=== PATIENT | female | born 1960 | race Caucasian/White ===

== ENCOUNTER 2022-09-12 18:27 | Emergency (ER) | payer OTHER ==
[2022-09-12 18:34] VITALS: TEMP 98.2
[2022-09-12 19:33] LABS: Basophils % (A) 0 %; Eosinophils # (A) 0.1 k/uL (0-0.7); Eosinophils % (A) 1 %; HCT 41.1 % (34.0-46.0); HGB 13.8 gm/dL (11.4-16.0); Lymphocytes # (A) 2.1 k/uL (1.0-4.8); Lymphocytes % (A) 26 %; MCH 28.8 pg (25.0-35.0); MCHC 33.6 g/dL (31.0-37.0); MCV 85.5 fL (80.0-100.0); Mean Platelet Volume 7.7; Monocytes # (A) 0.6 k/uL (0-1.0); Monocytes % (A) 7 %; Neutrophils % (A) 63 %; Platelet Count 219 k/uL (150-450); RDW 14.2 % (11.5-15.5); WBC 7.9 k/uL (3.8-10.6)
--- NOTE | 2022-09-12 19:37 | XR ---
EXAMINATION TYPE: XR chest 2V DATE OF EXAM: 09/12/2022 7:30 PM COMPARISON: None TECHNIQUE: XR chest 2V Frontal and lateral views of the chest. CLINICAL INDICATION:Female, 61 years old with history of Chest Pain; FINDINGS: Lungs/Pleura: There is no evidence of pleural effusion, focal consolidation, or pneumothorax. Pulmonary vascularity: Unremarkable. Heart/mediastinum: Cardiomediastinal silhouette is unremarkable. Musculoskeletal: No acute osseous pathology. Mild degenerative changes of the thoracic spine. IMPRESSION: No acute cardiopulmonary disease/process.
[2022-09-12 19:51] LABS: ALT 33 U/L (4-34); AST 33 U/L (14-36); African American GFR (CKD) >90 (>60 ml/min/1.73 sqM); Albumin 4.5 g/dL (3.5-5.0); Alkaline Phosphatase 101 U/L (38-126); Anion Gap 10 mmol/L; Blood Urea Nitrogen 18 mg/dL (7-17); Calcium 9.7 mg/dL (8.4-10.2); Carbon Dioxide 25 mmol/L (22-30); Chloride 105 mmol/L (98-107); Glucose 92 mg/dL (74-99); Lipase 154 U/L (23-300); Magnesium 2.2 mg/dL (1.6-2.3); Non-African American GFR(CKD) >90 (>60 ml/min/1.73 sqM); Potassium 3.8 mmol/L (3.5-5.1); Sodium 140 mmol/L (137-145); Total Bilirubin 0.6 mg/dL (0.2-1.3); Total Protein 7.5 g/dL (6.3-8.2)
[2022-09-12 19:55] LABS: Prothrombin Time 10.3 sec (9.0-12.0)
[2022-09-12 19:56] LABS: Partial Thromboplastin Time 23.6 sec (22.0-30.0)
--- NOTE | 2022-09-12 20:42 | ED ---
Chest Pain HPI - General Chief Complaint: Chest Pain Stated Complaint: abn EKG - sent by pcp Time Seen by Provider: 09/12/22 19:00 Source: patient Mode of arrival: ambulatory Limitations: no limitations - History of Present Illness Initial Comments: 61-year-old female percent emergency room from her primary care office. She went into their for evaluation of her high blood pressure. She was reporting to some left-sided chest pain and therefore they did recommend that she come to the hospital. Patient denies previous cardiac history. States that she had a stress test 10 years ago which was normal. Pain is not present at this time. It was sharp in nature located over the left chest wall and only last a couple seconds. She denies fevers, chills or cough. No nausea or vomiting. No history of hypertension. No calf pain. Does admit to some mild peripheral edema. States she's been more active on her feet. The swelling will dissipate when she keeps her feet up at night. No family history of sudden cardiac . No other alleviating, presenting modifying factors - Related Data Home Medications Medication Instructions Recorded Confirmed Multivitamins, Thera [Multivitamin] 1 tab PO DAILY 11/09/15 09/12/22 Cholecalciferol [Vitamin D3 (25 25 mcg PO DAILY 09/12/22 09/12/22 Mcg = 1000 Iu)] L.acidoph,Paracasei, B.lactis 1 cap PO DAILY 09/12/22 09/12/22 [Probiotic] [place]-3/Dha/Epa/Fish Oil [Fish Oil 1 cap PO DAILY 09/12/22 09/12/22 1,000 mg Softgel] Ubidecarenone [Co Q-10] 300 mg PO DAILY 09/12/22 09/12/22 Previous Rx's Medication Instructions Recorded Furosemide [Lasix] 20 mg PO DAILY #30 tab 09/12/22 Allergies Allergy/AdvReac Type Severity Reaction Status Date / Time No Known Allergies Allergy Verified 09/12/22 19:43 Review of Systems ROS Statement: Those systems with pertinent positive or pertinent negative responses have been documented in the HPI. ROS Other: All systems not noted in ROS Statement are negative. Past Medical History Past Medical History: GERD/Reflux Additional Past Medical History / Comment(s): HIATAL HERNIA; IBS, bilateral hearing loss from , sleep apnea, GERD improved since surgery in August 2014 of Hiatal hernia and gastric sleeve History of Any Multi-Drug Resistant Organisms: ESBL, MRSA Date of last positivie culture/infection: 11/05/19 MRSA 2013 MDRO Source:: LT EAR ESBL Past Surgical History: Bariatric Surgery, Orthopedic Surgery, Tubal Ligation Additional Past Surgical History / Comment(s): Bariatric sleeve in August 2014, bilateral knee total replacement (right knee February 2015, Left knee May 2015), left breast biopsy (negative in 2014) Past Anesthesia/Blood Transfusion Reactions: No Reported Reaction Past Psychological History: No Psychological Hx Reported Smoking Status: Former smoker Past Alcohol Use History: None Reported Past Drug Use History: None Reported - Past Family History Mother Family Medical History: Asthma, Cancer, COPD Additional Family Medical History / Comment(s): colon cancer 2015, Father History Unknown: Yes General Exam Limitations: no limitations General appearance: alert, in no apparent distress Head exam: Present: atraumatic, normocephalic, normal inspection Eye exam: Present: normal appearance, PERRL, EOMI. Absent: scleral icterus, conjunctival injection, periorbital swelling ENT exam: Present: normal exam, mucous membranes moist Neck exam: Present: normal inspection. Absent: tenderness, meningismus, lymphadenopathy Respiratory exam: Present: normal lung sounds bilaterally. Absent: respiratory distress, wheezes, rales, rhonchi, stridor Cardiovascular Exam: Present: regular rate, normal rhythm, normal heart sounds. Absent: systolic murmur, diastolic murmur, rubs, gallop, clicks GI/Abdominal exam: Present: soft, normal bowel sounds. Absent: distended, tenderness, guarding, rebound, rigid Extremities exam: Present: normal inspection, full ROM, normal capillary refill. Absent: tenderness, pedal edema, joint swelling, calf tenderness Back exam: Present: normal inspection Neurological exam: Present: alert, oriented X3, CN II-XII intact Psychiatric exam: Present: normal affect, normal mood Skin exam: Present: warm, dry, intact, normal color. Absent: rash Course Vital Signs 09/12/22 09/12/22 09/12/22 18:30 19:13 19:15 Temperature 98.2 F Pulse Rate 95 87 81 Respiratory 20 18 Rate Blood Pressure 150/89 171/85 O2 Sat by Pulse 96 96 98 Oximetry 09/12/22 09/12/22 09/12/22 19:30 19:45 20:00 Temperature Pulse Rate 82 84 78 Respiratory 18 21 19 Rate Blood Pressure 159/82 155/83 155/73 O2 Sat by Pulse 95 95 96 Oximetry 09/12/22 09/12/22 09/12/22 20:15 20:30 20:45 Temperature Pulse Rate 81 81 79 Respiratory 18 18 18 Rate Blood Pressure 153/73 154/72 157/83 O2 Sat by Pulse 97 96 94 L Oximetry Chest Pain MDM - MDM Was pt. sent in by a medical professional or institution (, PA, [employer], urgent care, hospital, or half-way...) When possible be specific @ -Yes patient was sent in by her PCP office Did you speak to anyone other than the patient for history (EMS, parent, family, police, friend...)? What history was obtained from this source @ -No Did you review nursing and triage notes (agree or disagree)? Why? @ -I reviewed and agree with nursing and triage notes Were old charts reviewed (outside hosp., previous admission, EMS record, old EKG, old radiological studies, urgent care reports/EKG's, half-way records)? Report findings @ -No old charts were reviewed Differential Diagnosis (chest pain, altered mental status, abdominal pain women, abdominal pain men, vaginal bleeding, weakness, fever, dyspnea, syncope, headache, dizziness, GI bleed, back pain, seizure, CVA, palpatations, mental health, musculoskeletal)? @ -Differential Chest Pain: Stable Angina, Unstable Angina, STEMI, NSTEMI Aortic Dissection, Pneumothorax, Musculoskeletal, Esophageal Spasm GERD, Cholecystitis, Pancreatitis, Zoster, this is not meant to be an all-inclusive list. EKG interpreted by me (3pts min.). @ -EKG interpreted by myself which demonstrates a sinus rhythm with occasional PVCs. Rate of 92. CA interval of 190. QRS 99. QTC of 400. No acute ST segment elevations or depressions X-rays interpreted by me (1pt min.). @ -Yes and does not demonstrate acute intrathoracic process CT interpreted by me (1pt min.). @ -None done U/S interpreted by me (1pt. min.). @ -None done What testing was considered but not performed or refused? (CT, X-rays, U/S, labs)? Why? @ -None What meds were considered but not given or refused? Why? @ -None Did you discuss the management of the patient with other professionals (professionals i.e. , PA, [employer], lab, RT, psych nurse, social service manager, crossing watchman, teacher, special forces officer, casework specialist)? Give summary @ -No Was smoking cessation discussed for >3mins.? @ -No Was critical care preformed (if so, how long)? @ -No Were there social determinants of health that impacted care today? How? (Homelessness, low income, unemployed, alcoholism, drug addiction, transportation, low edu. Level, literacy, decrease access to med. care, fci, rehab)? @ -No Was there de-escalation of care discussed even if they declined (Discuss DNR or withdrawal of care, Hospice)? DNR status @ -No What co-morbidities impacted this encounter? (DM, HTN, Smoking, COPD, CAD, Cancer, CVA, ARF, Chemo, Hep., AIDS, mental health diagnosis, sleep apnea, morbid obesity)? @ -None Was patient admitted / discharged? Hospital course, mention meds given and route, prescriptions, significant lab abnormalities, going to OR and other pertinent info. @ -Upon arrival patient was placed into room 3. A thorough history and physical exam was performed. 12 EKG from the patient's primary care office was visualized which demonstrates PVCs. I did repeat an EKG which demonstrates no acute ST segment elevation. Laboratory studies are conducted. Chest x-rays performed. I did discuss results with the patient. Patient would like to go ho me at this time. We will initiate Lasix for her peripheral edema and high blood pressure. She needs to follow-up with her primary care doctor. Keep a blood pressure log. Have her doctor check her potassium levels next week and return for any new or worsening symptoms. Patient was agreeable to this and she was discharged in stable condition Undiagnosed new problem with uncertain prognosis? @ -Yes Drug Therapy requiring intensive monitoring for toxicity (Heparin, Nitro, Insulin, Cardizem)? @ -No Were any procedures done? @ -No Diagnosis/symptom? @ -Acute chest pain, accelerated hypertension Acute, or Chronic, or Acute on Chronic? @ -Acute Uncomplicated (without systemic symptoms) or Complicated (systemic symptoms)? @ -Complicated Side effects of treatment? @ -No Exacerbation, Progression, or Severe Exacerbation? @ -No Poses a threat to life or bodily function? How? (Chest pain, [place], NH, pneumonia, PE, COPD, DKA, ARF, appy, cholecystitis, CVA, Diverticulitis, Homicidal, Suicidal, threat to staff... and all critical care pts) @ -Yes chest pain could represent acute cardiac event Disposition Clinical Impression: Hypertension, Atypical chest pain Disposition: HOME SELF-CARE Condition: Stable Instructions (If sedation given, give patient instructions): Hypertension (ED) Additional Instructions: Start taking the blood pressure medication tomorrow morning. Keep a log of your blood pressures twice daily. Follow-up with your doctor next week and have them recheck your blood pressure and potassium levels. I recommend a stress test, Holter monitoring and echo of your heart. Return for any new or worsening symptoms Prescriptions: Furosemide [Lasix] 20 mg PO DAILY #30 tab Is patient prescribed a controlled substance at d/c from ED?: No Referrals: Haroon Horne DO [Primary Care Provider] - 1-2 days Time of Disposition: 20:42
[2022-09-12 20:49] VITALS: BP 157/83; PULSE 79; RESP 18
== END 2022-09-12 20:57 | disposition home or self-care (01) ==
LOC: EC 18:27
DX: R07.89 Other chest pain (principal); I10 Essential (primary) hypertension; K21.9 Gastro-esophageal reflux disease without esophagitis; Z87.891 Personal history of nicotine dependence; Z79.899 Other long term (current) drug therapy
CPT/HCPCS: 36415; 71046; 80053; 83690; 83735; 83880; 84484; 85025; 85610; 85730; 93005; 99285

== ENCOUNTER 2022-11-11 21:43 | Observation (INO) | payer OTHER ==
--- NOTE | 2022-11-11 23:12 | ED ---
Abdominal Pain HPI - General Source: patient Mode of arrival: ambulatory Limitations: no limitations <Song Grijalva - Last Filed: 11/11/22 23:11> - History of Present Illness MD Complaint: abdominal pain, flank pain, other (Right upper quadrant right flank pain) -: days(s) Location: diffuse, RLQ, suprapubic Radiation: RUQ Migration to: epigastric Severity: moderate Severity scale (1-10): 7 Quality: fullness, sharp Consistency: constant Improves With: nothing Worsens With: nothing Associated Symptoms: nausea Treatments Prior to Arrival: other (0) <Jimenez Fairchild - Last Filed: 11/13/22 06:51> - General Chief Complaint: Abdominal Pain Stated Complaint: Abdominal Pain Time Seen by Provider: 11/11/22 23:11 - History of Present Illness Initial Comments: 61-year-old female presenting with chief complaint of right upper quadrant ongoing for the last 3-4 days. She has had episodes of this same pain in the past. She believes it is her gallbladder. (Song Grijalva) This is a 61-year-old female DF for evaluation bowel pain right upper quadrant flank pain and some back pain. Wheezes could be gallbladder pain but she also feels very dehydrated with abdominal pain and right-sided flank pain right-sided abdominal pain. Patient denies fevers. Symptoms for a few days now. They did improve when she did not eat pain went from the epigastric area to the right side of her back (Jimenez Fairchild) - Related Data Home Medications Medication Instructions Recorded Confirmed Multivitamins, Thera [Multivitamin] 1 tab PO BID 11/09/15 11/12/22 Cholecalciferol [Vitamin D3 (25 25 mcg PO DAILY 09/12/22 11/12/22 Mcg = 1000 Iu)] L.acidoph,Paracasei, B.lactis 1 cap PO HS 09/12/22 11/12/22 [Probiotic] [place]-3/Dha/Epa/Fish Oil [Fish Oil 1 cap PO BID 09/12/22 11/12/22 1,000 mg Softgel] Ubidecarenone [Co Q-10] 300 mg PO DAILY 09/12/22 11/12/22 Cellwise 1 tab PO BID 11/12/22 11/12/22 Cyanocobalamin (Vitamin B-12) 1,000 mcg PO DAILY 11/12/22 11/12/22 [Vitamin B-12] Provexcv 1 tab PO BID 11/12/22 11/12/22 Recover A1 1 tab PO BID 11/12/22 11/12/22 Allergies Allergy/AdvReac Type Severity Reaction Status Date / Time No Known Allergies Allergy Verified 11/12/22 09:19 Review of Systems ROS Other: All systems not noted in ROS Statement are negative. <Song Grijalva - Last Filed: 11/11/22 23:11> ROS Other: All systems not noted in ROS Statement are negative. <Jimenez Fairchild - Last Filed: 11/13/22 06:51> ROS Statement: Those systems with pertinent positive or pertinent negative responses have been documented in the HPI. Past Medical History Past Medical History: GERD/Reflux Additional Past Medical History / Comment(s): HIATAL HERNIA; IBS, bilateral hearing loss from , sleep apnea, GERD improved since surgery in August 2014 of Hiatal hernia and gastric sleeve History of Any Multi-Drug Resistant Organisms: ESBL, MRSA Date of last positivie culture/infection: 11/05/19 MRSA 2012 MDRO Source:: LT EAR ESBL Past Surgical History: Bariatric Surgery, Orthopedic Surgery, Tubal Ligation Additional Past Surgical History / Comment(s): Bariatric sleeve in August 2014, bilateral knee total replacement (right knee February 2015, Left knee May 2015), left breast biopsy (negative in 2014) Past Anesthesia/Blood Transfusion Reactions: No Reported Reaction Past Psychological History: No Psychological Hx Reported Smoking Status: Former smoker Past Alcohol Use History: None Reported Past Drug Use History: None Reported - Past Family History Mother Family Medical History: Asthma, Cancer, COPD Additional Family Medical History / Comment(s): colon cancer 2015, Father History Unknown: Yes <Song Grijalva - Last Filed: 11/11/22 23:11> General Exam Limitations: no limitations <Song Grijalva - Last Filed: 11/11/22 23:11> General appearance: alert, in no apparent distress, obese Head exam: Present: atraumatic, normocephalic, normal inspection Eye exam: Present: normal appearance, PERRL, EOMI. Absent: scleral icterus, conjunctival injection, periorbital swelling ENT exam: Present: normal exam, mucous membranes moist Neck exam: Present: normal inspection. Absent: tenderness, meningismus, lymphadenopathy Respiratory exam: Present: normal lung sounds bilaterally. Absent: respiratory distress, wheezes, rales, rhonchi, stridor Cardiovascular Exam: Present: regular rate, normal rhythm, normal heart sounds. Absent: systolic murmur, diastolic murmur, rubs, gallop, clicks GI/Abdominal exam: Present: soft, distended, tenderness, guarding, normal bowel sounds. Absent: rigid Extremities exam: Present: normal inspection, full ROM, normal capillary refill. Absent: tenderness, pedal edema, joint swelling, calf tenderness Back exam: Present: normal inspection Neurological exam: Present: alert, oriented X3, CN II-XII intact Psychiatric exam: Present: normal affect, normal mood Skin exam: Present: warm, dry, intact, normal color. Absent: rash <Jimenez Fairchild - Last Filed: 11/13/22 06:51> - General Exam Comments Initial Comments: Visual Physical Exam Vital signs reviewed General: Well-appearing, nontoxic, no acute distress. Head: Normocephalic, atraumatic Eyes: PERRLA, EOMI ENT: Airway patent Chest: Nonlabored breathing Skin: No visual rash, normal skin tone Neuro: Alert and oriented 3 Musculoskeletal: No gross abnormalities (Song Grijalva) Course <Jimenez Fairchild - Last Filed: 11/13/22 06:51> Vital Signs 11/11/22 11/12/22 11/12/22 22:30 05:00 05:59 Temperature 99.8 F H 97.8 F Pulse Rate 114 H 83 83 Respiratory 18 20 20 Rate Blood Pressure 112/76 136/71 108/70 O2 Sat by Pulse 96 96 97 Oximetry - Reevaluation(s) Reevaluation #1: 11/12/22 05:24 Medical records reviewed (Jimenez Fairchild) Reevaluation #2: 11/12/22 05:24 Patient's pain is improved symptoms improved (Jimenez Fairchild) Reevaluation #3: 11/12/22 05:24 Patient informed results questions answered (Jimenez Fairchild) Reevaluation #4: 11/12/22 05:24 Was pt. sent in by a medical professional or institution ([facility], [employer], urgent care, hospital, or halfway...) When possible be specific @ -no Did you speak to anyone other than the patient for history (EMS, parent, family, police, friend...)? What history was obtained from this source @ -no Did you review nursing and triage notes (agree or disagree)? Why? @ -agree Are old charts reviewed (outside hosp., previous admission, EMS record, old EKG, old radiological studies, urgent care reports/EKG's, halfway records)? Report findings @ -yes Differential Diagnosis (chest pain, altered mental status, abdominal pain women, abdominal pain men, vaginal bleeding, weakness, fever, dyspnea, syncope, headache, dizziness, GI bleed, back pain, seizure, CVA, palpatations, mental health, musculoskeletal)? @ -prior EKG interpreted by me (3pts min.). @ -yes X-rays interpreted by me (1pt min.). @ -no CT interpreted by me (1pt min.). @ -no U/S interpreted by me (1pt. min.). @ -yes What testing was considered but not performed or refused? (CT, X-rays, U/S, labs)? Why? @ -none What meds were considered but not given or refused? Why? @ -none Did you discuss the management of the patient with other professionals (professionals i.e. [facility], [employer], lab, RT, psych nurse, public health social worker, supervisor waterworks, teacher, soil science technical officer, case work aide)? Give summary @ -no Was smoking cessation discussed for >3mins.? @ -no Was critical care preformed (if so, how long)? @ -no Were there social determinants of health that impacted care today? How? (Homelessness, low income, unemployed, alcoholism, drug addiction, transpo rtation, low edu. Level, literacy, decrease access to med. care, residential, rehab)? @ -none Was there de-escalation of care discussed even if they declined (Discuss DNR or withdrawal of care, Hospice)? DNR status @ -no What co-morbidities impacted this encounter? (DM, HTN, Smoking, COPD, CAD, Cancer, CVA, ARF, Chemo, Hep., AIDS, mental health diagnosis, sleep apnea, morbid obesity)? @ -none Was patient admitted / discharged? Hospital course, mention meds given and route, prescriptions, significant lab abnormalities, going to OR and other pertinent info. @ - 61 female to the emergency department for evaluation of abdominal pain some dysuria not feeling well. Patient's positive for urinary tract infection and cholecystitis. Patient placed on antibiotics [place] for surgical evaluation management Admitted Undiagnosed new problem with uncertain prognosis? @ -no Drug Therapy requiring intensive monitoring for toxicity (Heparin, Nitro, Insulin, Cardizem)? @ -no Were any procedures done? @ -no Diagnosis/symptom? @ -Colicystitis, abdominal pain, UTI Acute, or Chronic, or Acute on Chronic? @ -Acute Uncomplicated (without systemic symptoms) or Complicated (systemic symptoms)? @ -Complicated Side effects of treatment? @ -no Exacerbation, Progression, or Severe Exacerbation? @ -exacerbation Poses a threat to life or bodily function? How? (Chest pain, [place], [place], pneumonia, PE, COPD, DKA, ARF, appy, cholecystitis, CVA, Diverticulitis, Homicidal, Suicidal, threat to staff... and all critical care pts) @ -yes (Jimenez Fairchild) Reevaluation #5: 11/12/22 05:24 Differential Abdominal Pain Women: Appendicitis, Cholecystitis, diverticulosis, ischemic bowel, pancreatitis, hepatitis, UTI, gastroenteritis, AAA, incarcerated hernia, bowel obstruction, constipation, inflammatory bowel, hepatitis, peptic ulcer disease, splenic infarction, perforated viscus, vulvitis, ovarian torsion, PID, kidney stone, placenta abruption, this is not meant to be an all-inclusive list ([place] Fairchild) - Consultations Consultation #1: Spoke with Dr. Hunter for admission is agreeable (Jimenez Fairchild) Medical Decision Making - Lab Data Result diagrams: 11/12/22 12:16 11/12/22 12:16 - EKG Data -: EKG Interpreted by Me (EKG is sinus 85 WA 135 QRS 110 QTc 398) - Radiology Data Radiology results: report reviewed (Ultrasound gallbladder shows gallbladder distention CT head and pelvis is positive for cholecystitis), image reviewed <Jimenez Fairchild - Last Filed: 11/13/22 06:51> - Medical Decision Making 61 female to the emergency department for evaluation of abdominal pain some dysuria not feeling well. Patient's positive for urinary tract infection and cholecystitis. Patient placed on antibiotics [place] for surgical evaluation management (Jimenez Fairchild) - Lab Data Lab Results 11/11/22 11/12/22 11/12/22 Range/Units 22:47 01:00 01:00 WBC 11.9 H (3.8-10.6) k/uL RBC 5.20 (3.80-5.40) m/uL Hgb 15.5 (11.4-16.0) gm/dL Hct 45.4 (34.0-46.0) % MCV 87.3 (80.0-100.0) fL MCH 29.8 (25.0-35.0) pg MCHC 34.1 (31.0-37.0) g/dL RDW 14.2 (11.5-15.5) % Plt Count 216 (150-450) k/uL MPV 7.2 Neutrophils % 79 % Lymphocytes % 14 % Monocytes % 5 % Eosinophils % 1 % Basophils % 0 % Neutrophils # 9.4 H (1.3-7.7) k/uL Lymphocytes # 1.6 (1.0-4.8) k/uL Monocytes # 0.6 (0-1.0) k/uL Eosinophils # 0.1 (0-0.7) k/uL Basophils # 0.0 (0-0.2) k/uL Sodium 139 (137-145) mmol/L Potassium 3.5 (3.5-5.1) mmol/L Chloride 105 (98-107) mmol/L Carbon Dioxide 22 (22-30) mmol/L Anion Gap 12 mmol/L BUN 9 (7-17) mg/dL Creatinine 0.75 (0.52-1.04) mg/dL Est GFR (CKD-EPI)AfAm >90 (>60 ml/min/1.73 sqM) Est GFR (CKD-EPI)NonAf 88 (>60 ml/min/1.73 sqM) Glucose 118 H (74-99) mg/dL Plasma Lactic Acid Marty (0.7-2.0) mmol/L Calcium 9.5 (8.4-10.2) mg/dL Total Bilirubin 1.1 (0.2-1.3) mg/dL AST 129 H (14-36) U/L ALT 238 H (4-34) U/L Alkaline Phosphatase 117 (38-126) U/L Total Protein 7.8 (6.3-8.2) g/dL Albumin 4.5 (3.5-5.0) g/dL Amylase 52 (30-110) U/L Lipase 98 (23-300) U/L Urine Color Yellow Urine Appearance Slightly Cloudy H (Clear) Urine pH 5.5 (5.0-8.0) Ur Specific [place] 1.025 (1.001-1.035) Urine Protein 1+ (Negative) Urine Glucose (UA) Negative (Negative) Urine Ketones Trace (Negative) Urine Blood Small (Negative) Urine Nitrite Positive (Negative) Urine Bilirubin Negative (Negative) Urine Urobilinogen <2.0 (<2.0) mg/dL Ur Leukocyte Esterase Large (Negative) Urine RBC 0 (0-5) /hpf Urine WBC 154 H (0-5) /hpf Urine Bacteria Many H (None) /hpf Urine Mucus Few H (None) /hpf 11/12/22 Range/Units 01:00 WBC (3.8-10.6) k/uL RBC (3.80-5.40) m/uL Hgb (11.4-16.0) gm/dL Hct (34.0-46.0) % MCV (80.0-100.0) fL MCH (25.0-35.0) pg MCHC (31.0-37.0) g/dL RDW (11.5-15.5) % Plt Count (150-450) k/uL MPV Neutrophils % % Lymphocytes % % Monocytes % % Eosinophils % % Basophils % % Neutrophils # (1.3-7.7) k/uL Lymphocytes # (1.0-4.8) k/uL Monocytes # (0-1.0) k/uL Eosinophils # (0-0.7) k/uL Basophils # (0-0.2) k/uL Sodium (137-145) mmol/L Potassium (3.5-5.1) mmol/L Chloride (98-107) mmol/L Carbon Dioxide (22-30) mmol/L Anion Gap mmol/L BUN (7-17) mg/dL Creatinine (0.52-1.04) mg/dL Est GFR (CKD-EPI)AfAm (>60 ml/min/1.73 sqM) Est GFR (CKD-EPI)NonAf (>60 ml/min/1.73 sqM) Glucose (74-99) mg/dL Plasma Lactic Acid Marty 1.1 (0.7-2.0) mmol/L Calcium (8.4-10.2) mg/dL Total Bilirubin (0.2-1.3) mg/dL AST (14-36) U/L ALT (4-34) U/L Alkaline Phosphatase (38-126) U/L Total Protein (6.3-8.2) g/dL Albumin (3.5-5.0) g/dL Amylase (30-110) U/L Lipase (23-300) U/L Urine Color Urine Appearance (Clear) Urine pH (5.0-8.0) Ur Specific [place] (1.001-1.035) Urine Protein (Negative) Urine Glucose (UA) (Negative) Urine Ketones (Negative) Urine Blood (Negative) Urine Nitrite (Negative) Urine Bilirubin (Negative) Urine Urobilinogen (<2.0) mg/dL Ur Leukocyte Esterase (Negative) Urine RBC (0-5) /hpf Urine WBC (0-5) /hpf Urine Bacteria (None) /hpf Urine Mucus (None) /hpf Disposition <Song Grijalva - Last Filed: 11/11/22 23:11> Is patient prescribed a controlled substance at d/c from ED?: No Time of Disposition: 05:00 <Jimenez Fairchild - Last Filed: 11/13/22 06:51> Clinical Impression: Abdominal pain, UTI (urinary tract infection), Acute cholecystitis Disposition: ADMITTED IP TO THIS HOSP Condition: Fair
[2022-11-11 23:25] LABS: Appearance,Urine Slightly Cloudy (Clear); Bilirubin,Urine Negative (Negative); Color,Urine Yellow; Glucose,Urine (UA) Negative (Negative); Ketones,Urine Trace (Negative); PH, Urine 5.5 (5.0-8.0); Protein,Urine 1+ (Negative); Specific Gravity,Urine 1.025 (1.001-1.035)
[2022-11-11 23:26] LABS: Blood,Urine Small (Negative); Leukocyte Esterase,Urine Large (Negative); Nitrite,Urine Positive (Negative); Urobilinogen,Urine <2.0 mg/dL (<2.0)
[2022-11-11 23:29] LABS: Bacteria,Urine Many /hpf; RBC,Urine 0 /hpf (0-5); WBC,Urine 154 /hpf (0-5)
[2022-11-11 23:30] LABS: Mucus,Urine Few /hpf
[2022-11-12] MEDS ORDERED: SODIUM CHLORIDE 0.9% 500 ML 500 ML IV STA (00:37)
[2022-11-12] MEDS ORDERED: SODIUM CHLORIDE 0.9% 1,000 ML IV STA (00:37)
[2022-11-12] MEDS ORDERED: MORPHINE SULFATE 4 MG/ML SYRINGE IVP STA (00:38)
[2022-11-12] MEDS ORDERED: ACETAMINOPHEN TAB 500 MG TAB PO STA (00:38)
[2022-11-12] MEDS ORDERED: KETOROLAC 15 MG/ML 1 ML VIAL IVP STA (00:38)
--- NOTE | 2022-11-12 01:11 | US ---
EXAM: US Abdomen Limited, Right Upper Quadrant CLINICAL HISTORY: ITS.REASON US Reason: RUQ pain TECHNIQUE: Real-time ultrasound of the right upper quadrant with image documentation. COMPARISON: No relevant prior studies available. FINDINGS: Liver: Unremarkable. No mass. No intrahepatic bile duct dilation. Gallbladder: Multiple small layering gallstones with moderate gallbladder distention. No gallbladder wall thickening or pericholecystic fluid. Common bile duct: Common bile duct measures 4.3 mm. No stones. No dilation. Pancreas: Unremarkable as visualized. Right kidney: Right kidney measures 9.92 cm. There is a 3.2 cm simple cyst arising off the mid right kidney. No further workup is required. No stones. No hydronephrosis. IMPRESSION: Multiple small layering gallstones with moderate gallbladder distention. No gallbladder wall thickening or pericholecystic fluid.
[2022-11-12 01:23] LABS: Basophils % (A) 0 %; Eosinophils # (A) 0.1 k/uL (0-0.7); Eosinophils % (A) 1 %; HCT 45.4 % (34.0-46.0); HGB 15.5 gm/dL (11.4-16.0); Lymphocytes # (A) 1.6 k/uL (1.0-4.8); Lymphocytes % (A) 14 %; MCH 29.8 pg (25.0-35.0); MCHC 34.1 g/dL (31.0-37.0); MCV 87.3 fL (80.0-100.0); Mean Platelet Volume 7.2; Monocytes # (A) 0.6 k/uL (0-1.0); Monocytes % (A) 5 %; Neutrophils # (A) 9.4 k/uL (1.3-7.7); Neutrophils % (A) 79 %; Platelet Count 216 k/uL (150-450); RDW 14.2 % (11.5-15.5); WBC 11.9 k/uL (3.8-10.6)
[2022-11-12 01:41] LABS: ALT 238 U/L (4-34); AST 129 U/L (14-36); African American GFR (CKD) >90 (>60 ml/min/1.73 sqM); Albumin 4.5 g/dL (3.5-5.0); Alkaline Phosphatase 117 U/L (38-126); Amylase 52 U/L (30-110); Anion Gap 12 mmol/L; Blood Urea Nitrogen 9 mg/dL (7-17); Calcium 9.5 mg/dL (8.4-10.2); Carbon Dioxide 22 mmol/L (22-30); Chloride 105 mmol/L (98-107); Glucose 118 mg/dL (74-99); Lipase 98 U/L (23-300); Non-African American GFR(CKD) 88 (>60 ml/min/1.73 sqM); Potassium 3.5 mmol/L (3.5-5.1); Sodium 139 mmol/L (137-145); Total Bilirubin 1.1 mg/dL (0.2-1.3); Total Protein 7.8 g/dL (6.3-8.2)
--- NOTE | 2022-11-12 04:29 | CT ---
EXAM: CT Abdomen and Pelvis Without Intravenous Contrast CLINICAL HISTORY: ITS.REASON CT Reason: pain TECHNIQUE: Axial computed tomography images of the abdomen and pelvis without intravenous contrast. CTDI is 21.8 mGy and DLP is 1319.4 mGy-cm. This CT exam was performed using one or more of the following dose reduction techniques: automated exposure control, adjustment of the mA and/or kV according to patient size, and/or use of iterative reconstruction technique. COMPARISON: No relevant prior studies available. FINDINGS: Lung bases: Lung bases demonstrate bilateral dependent atelectasis. ABDOMEN: Liver: Unremarkable. Gallbladder and bile ducts: Moderate gallbladder distention with wall thickening and surrounding inflammation concerning for acute cholecystitis. No ductal dilation. Pancreas: Unremarkable. No ductal dilation. Spleen: Unremarkable. No splenomegaly. Adrenals: Unremarkable. No mass. Kidneys and ureters: 1.1 cm lesion in the inferior pole of the right kidney with fat consistent with an angiomyolipoma. 2.8 cm simple cyst arising off the mid anterior right kidney consistent with a simple cyst. No further workup is required. No obstructing stones. No hydronephrosis. Stomach and bowel: Patient is status post gastric sleeve surgery. No obstruction. No mucosal thickening. PELVIS: Appendix: No findings to suggest acute appendicitis. Bladder: Unremarkable. No stones. Reproductive: Unremarkable as visualized. ABDOMEN and PELVIS: Intraperitoneal space: Small amount of free fluid in the pelvis. No free air. Bones/joints: No acute fracture. No dislocation. Soft tissues: Unremarkable. Vasculature: Unremarkable. No abdominal aortic aneurysm. Lymph nodes: Unremarkable. No enlarged lymph nodes. IMPRESSION: 1. Moderate gallbladder distention with wall thickening and surrounding inflammation concerning for acute cholecystitis. 2. 1.1 cm lesion in the inferior pole of the right kidney with fat consistent with an angiomyolipoma.
[2022-11-12] MEDS ORDERED: ONDANSETRON 4 MG/2 ML VIAL IVP PRN (05:20)
[2022-11-12] MEDS ORDERED: NALOXONE 0.4 MG/ML 1 ML VIAL IV PRN (05:20)
[2022-11-12] MEDS ORDERED: AMPICILLIN-SULBACTAM 3 GM in SODIUM CHLORIDE 0.9% 100 ML IVPB STA (05:20)
[2022-11-12] MEDS: SODIUM CHLORIDE 0.9% 1,000 ML IV SCH ×2 (05:30→22:24)
--- NOTE | 2022-11-12 11:12 | P.CONS ---
History of Present Illness - Reason for Consult Consult date: 11/12/22 Medical Management Requesting physician: Krishna Hunter - History of Present Illness History of Presenting Illness: Patient is a very pleasant 61-year-old female with a past medical history of GERD, cholelithiasis, and morbid obesity status post bariatric surgery with gastric sleeve placement in 2014. She presented to the emergency department with a chief complaint of abdominal pain 3 days accompanied by nausea. . Patient reports pain is a sharp colicky pain that occasionally radiates into right flank and back. Patient reports she has had this pain in the past and it has been related to her gallbladder, but reports today it is much worse. She denies any episodes of vomiting, fevers, chills, diaphoresis, headache, lightheadedness, dizziness, chest pain, palpitations, shortness of breath, cough or congestion, vomiting, or experiencing any changes in or difficulties with urinary or bowel function. She underwent full evaluation in the emergency department. CBC revealing leukocytosis with WBC count of 11.9. BMP unremarkable. Liver profile revealing elevated liver enzymes with AST of 129 and ALT of 238. Amylase and lipase normal findings. Urinalysis positive for infection. Urine culture sent to lab for analysis. Blood culture sent to lab for analysis. Abdominal ultrasound showing multiple small layering gallstones with moderate gallbladder distention and no reported gallbladder wall thickening or pericholecystic fluid. CT abdomen and pelvis without contrast showing moderate gallbladder distention with wall thickening and surrounding inflammation concerning for acute cholecystitis and a 1.1 cm lesion in the inferior hole of the right kidney with fat consistent with an angiomyolipoma. EKG complete showing sinus rhythm with frequent PVCs at 85 bpm upon personal review and interpretation. Patient was started on IV antibiotics with Unasyn and admitted under general surgery team. We were consulted for medical manageme nt throughout hospitalization. Review of systems: Pertinent positives and negatives as discussed in HPI, a complete review of systems was performed and all other systems are negative. Physical exam: Vital signs reviewed and stable. General: Nontoxic, no distress and appears stated age. Derm: Skin warm and dry, normal coloration for ethnicity. Head: Atraumatic, normocephalic and symmetric. Eyes: EOMs intact, no lid lag, and anicteric sclera Mouth: no lip lesions, mucus membranes moist Cardiovascular: regular rate and rhythm with normal S1S2, no murmur, positive posterior tibial pulses bilaterally, and cap refill < 2 seconds. Lungs: Respirations even, regular, and unlabored on room air. Lungs CTA bilaterally, no rhonchi, no rales, no wheezing, and no accessory muscle usage. Abdominal: Soft, nondistended. Patient reports slight tenderness upon palpation of right upper quadrant. Reports improved since receiving pain medication, no guarding, no appreciable organomegaly Ext: ROM intact. No gross muscle atrophy, no edema, no contractures Neuro: Speech clear, face symmetrical and CN II-XII grossly intact with no noted focal neuro deficits Psych: Alert and oriented to person, place, time, and situation. Appropriate and pleasant affect. Assessment and Plan of Care: Data review: -Urinalysis positive for infection. Urine culture sent to lab for analysis. -Blood culture sent to lab for analysis. -Initial lab work showing: CBC revealing leukocytosis with WBC count of 11.9. BMP unremarkable. Liver profile revealing elevated liver enzymes with AST of 129 and ALT of 238. Amylase and lipase normal findings. -Repeat morning labs showing improvement of liver enzymes with AST decreasing from 129 down to 68 and ALT decreasing from 238 down to 161. Bilirubin remains normal findings and currently 0.8. CBC showing resolution of previous leukocytosis with WBC count decreasing from 11.9 down to 7.9 and BMP remains unremarkable. Imaging reviewed: -Abdominal ultrasound showing multiple small layering gallstones with moderate gallbladder distention and no reported gallbladder wall thickening or pericholecystic fluid. -CT abdomen and pelvis without contrast showing moderate gallbladder distention with wall thickening and surrounding inflammation concerning for acute cholecystitis and a 1.1 cm lesion in the inferior hole of the right kidney with fat consistent with an angiomyolipoma. Acute cholecystitis with elevated liver enzymes Acute cystitis without hematuria Sepsis, secondary to above. Elevated liver enzymes History of GERD Morbid obesity with BMI of 43.9 kg/m -Sepsis as evidenced by heart rate 114, temp 99.8F, and WBC count of 11.9. Lactic acid was normal findings at 1.1. -Patient received IV fluid hydration and started on IV antibiotics with Unasyn 3 g every 8 hours. Patient may continue with Unasyn 3 g every 8 hours pending culture and sensitivity reports. -Gastroenterology consulted secondary to elevated liver enzymes, discussed plan of care with gastroenterology GEOLOGICAL E LOGGER stating no indication for MRCP or ERCP at this time and recommend an proceeding with cholecystectomy.. -Gen. surgery tentatively planning to take patient for microscopic cholecystectomy tomorrow morning. -We will follow up on blood cultures and urine culture results and place additional orders as needed based upon these findings. Thank you for allowing us to participate in the care of this pleasant patient. Do not hesitate to contact us with questions. Someone can be reached from the [facility] hospitalist group all hours of the day at [phone] or via e[employer]. Patient was seen independently by Nurse Practitioner. This document was prepared using [employer] dictation software. Please allow for errors in gum dipper while rare they do occur. Bernard Hernandes NP rendered care for this patient independently, reviewed the findings and plan as documented in the note above. I did not physically speak with or examine the patient on this date. Past Medical History Past Medical History: GERD/Reflux Additional Past Medical History / Comment(s): HIATAL HERNIA; IBS, bilateral hearing loss from , sleep apnea, GERD improved since surgery in August 2014 of Hiatal hernia and gastric sleeve History of Any Multi-Drug Resistant Organisms: ESBL, MRSA Year Discovered:: 11/05/19 MRSA 2012 MDRO Source:: LT EAR ESBL Past Surgical History: Bariatric Surgery, Orthopedic Surgery, Tubal Ligation Additional Past Surgical History / Comment(s): Bariatric sleeve in August 2014, bilateral knee total replacement (right knee February 2015, Left knee May 2015), left breast biopsy (negative in 2014) Past Anesthesia/Blood Transfusion Reactions: No Reported Reaction Past Psychological History: No Psychological Hx Reported Smoking Status: Former smoker Past Alcohol Use History: None Reported Past Drug Use History: None Reported - Past Family History Mother Family Medical History: Asthma, Cancer, COPD Additional Family Medical History / Comment(s): colon cancer 2015, Father History Unknown: Yes Medications and Allergies Home Medications Medication Instructions Recorded Confirmed Type Multivitamins, Thera [Multivitamin 1 tab PO BID 11/09/15 11/12/22 History (formulary)] Cholecalciferol [Vitamin D3 (25 25 mcg PO DAILY 09/12/22 11/12/22 History Mcg = 1000 Iu)] L.acidoph,Paracasei, B.lactis 1 cap PO HS 09/12/22 11/12/22 History [Probiotic] [place]-3/Dha/Epa/Fish Oil [Fish Oil 1 cap PO BID 09/12/22 11/12/22 History 1,000 mg Softgel] Ubidecarenone [Co Q-10] 300 mg PO DAILY 09/12/22 11/12/22 History Cellwise 1 tab PO BID 11/12/22 11/12/22 History Cyanocobalamin (Vitamin B-12) 1,000 mcg PO DAILY 11/12/22 11/12/22 History [Vitamin B-12] Provexcv 1 tab PO BID 11/12/22 11/12/22 History Recover A1 1 tab PO BID 11/12/22 11/12/22 History Docusate [Colace] 100 mg PO BID #30 capsule 11/15/22 Rx HYDROcodone/APAP 5-325MG [[place] 1 tab PO Q6HR PRN 3 Days #12 tab 11/15/22 Rx 5-325] Famotidine 20 mg PO BID #14 tablet 11/18/22 Rx diphenhydrAMINE [Benadryl] 50 mg PO QID PRN #20 capsule 11/18/22 Rx Allergies Allergy/AdvReac Type Severity Reaction Status Date / Time No Known Allergies Allergy Verified 11/13/22 12:58 Physical Exam Vitals: Vital Signs Temp Pulse Pulse Resp BP BP Pulse Ox 11/12/22 09:27 85 16 11/12/22 06:45 98.4 F 85 16 118/76 97 11/12/22 05:59 97.8 F 83 20 108/70 97 11/12/22 05:00 83 20 136/71 96 11/11/22 22:30 99.8 F H 114 H 18 112/76 96 Intake and Output 11/11/22 11/12/22 11/12/22 22:59 06:59 14:59 Other: Weight 127.006 kg 127.006 kg Results CBC & Chem 7: 11/15/22 05:51 11/15/22 05:51 Labs: Abnormal Lab Results - Last 24 Hours (Table) 11/11/22 11/12/22 11/12/22 Range/Units 22:47 01:00 01:00 WBC 11.9 H (3.8-10.6) k/uL Neutrophils # 9.4 H (1.3-7.7) k/uL Glucose 118 H (74-99) mg/dL AST 129 H (14-36) U/L ALT 238 H (4-34) U/L Urine Appearance Slightly Cloudy H (Clear) Urine WBC 154 H (0-5) /hpf Urine Bacteria Many H (None) /hpf Urine Mucus Few H (None) /hpf
--- NOTE | 2022-11-12 12:32 | P.GSHP ---
History of Present Illness H&P Date: 11/12/22 CHIEF COMPLAINT: Abdominal pain HISTORY OF PRESENT ILLNESS: This is a 61-year-old female presented with right upper quadrant abdominal pain that started 3 days ago. Patient reports that the pain started in the right upper quadrant did go across the upper abdomen and in the back. She describes the pain as sharp and stabbing. Pain was worse after eating. She has a known history of gallstones and did have similar symptoms intermittently over the last 3 months. She does have a known surgical history of having hernia repair and sleeve gastrectomy. Abdominal ultrasound shows multiple small layering gallstones with moderate gallbladder distention. No gallbladder wall thickening or pericholecystic fluid. Her liver enzymes are elevated. Total bilirubin normal. Her pain has shown improvement today. She denies any nausea vomiting. Denies any fever chills or sweats. She had been mildly tachycardic on admission. Patient denies any cardiac history. PAST MEDICAL HISTORY: See below PAST SURGICAL HISTORY: See below MEDICATIONS: See below ALLERGIES: See below SOCIAL HISTORY: No illicit drug use. REVIEW OF SYSTEMS: CONSTITUTIONAL: Denies fever or chills. HEENT: Denies blurred vision, vision changes, or eye pain. Denies hemoptysis CARDIOVASCULAR: Denies chest pain or pressure. RESPIRATORY: No shortness of breath. GASTROINTESTINAL: See HPI for pertinent findings HEMATOLOGIC: Denies bleeding disorders. GENITOURINARY: Denies any blood in urine or increased urinary frequency. SKIN: Denies pruitis. Denies rash. PHYSICAL EXAM: VITAL SIGNS: Reviewed GENERAL: Well-developed in no acute distress. HEENT: No sclera icterus. Extraocular movements grossly intact. Moist buccal mucosa. Head is atraumatic, normocephalic. No nasal drainage. ABDOMEN: Soft. Nondistended. Mild RUQ tenderness with palpation NEUROLOGIC: Alert and oriented. Cranial nerves II through XII grossly intact. LABORATORY DATA: WBC 11.9 Hgb 15.5 platelets 216 Sodium 139 potassium 3.5 creatinine 0.75 Total bilirubin 1.1 AST 129 ALT 238 alk phos 117 lipase 98 Urine culture pending IMAGING: Abdominal ultrasound multiple small layering gallstones with moderate gallbladder distention. No gallbladder wall thickening or pericholecystic fluid. Computed tomography scan moderate gallbladder distention with wall thickening and surrounding inflammation concerning for acute cholecystitis. 1.1 cm lesion in the inferior pole right kidney with facts with an angiomyolipoma ASSESSMENT: 1. Acute cholecystitis with gallstones noted on ultrasound 2. Possible choledocholithiasis with elevated liver enzymes 3. Possible UTI urine culture pending PLAN: -Consult GI service for possible choledocholithiasis -Repeat LFTs -Continue antibiotics -Continue supportive care -Patient scheduled for laparoscopic cholecystectomy tomorrow with Dr. Goldstein -Nothing by mouth after midnight Physician Gold Buyer note has been reviewed by physician. Signing provider agrees with the documented findings, assessment, and plan of care. I have personally seen and examined the patient, reviewed the DESKTOP PUBLISHING ASSOCIATE /PAs history, exam and MDM and agree with the assessment and plan as written. Based on total visit time, I have performed more than 50% of the visit. As above: Patient says her pain is improved at this time. Liver enzyme elevation led to GI consult. Repeat enzymes improved. We'll repeat one more time tomorrow. Continue antibiotics. Anticipate proceeding with surgery tomorrow. We'll schedule for laparoscopic, possible open cholecystectomy tomorrow. Risks of bleeding, infection, bile leak, bile duct injury, retained common bile duct stone, trocar injury, conversion to an open procedure, hernia, anesthesia related complications were reviewed. The patient understands and wishes to proceed. Past Medical History Past Medical History: GERD/Reflux Additional Past Medical History / Comment(s): HIATAL HERNIA; IBS, bilateral hearing loss from , sleep apnea, GERD improved since surgery in August 2014 of Hiatal hernia and gastric sleeve History of Any Multi-Drug Resistant Organisms: ESBL, MRSA Date of last positivie culture/infection: 11/05/19 MRSA 2012 MDRO Source:: LT EAR ESBL Past Surgical History: Bariatric Surgery, Orthopedic Surgery, Tubal Ligation Additional Past Surgical History / Comment(s): Bariatric sleeve in August 2014, bilateral knee total replacement (right knee February 2015, Left knee May 2015), left breast biopsy (negative in 2014) Past Anesthesia/Blood Transfusion Reactions: No Reported Reaction Past Psychological History: No Psychological Hx Reported Smoking Status: Former smoker Past Alcohol Use History: None Reported Past Drug Use History: None Reported - Past Family History Mother Family Medical History: Asthma, Cancer, COPD Additional Family Medical History / Comment(s): colon cancer 2015, Father History Unknown: Yes Medications and Allergies Home Medications Medication Instructions Recorded Confirmed Type Multivitamins, Thera [Multivitamin] 1 tab PO BID 11/09/15 11/12/22 History Cholecalciferol [Vitamin D3 (25 25 mcg PO DAILY 09/12/22 11/12/22 History Mcg = 1000 Iu)] L.acidoph,Paracasei, B.lactis 1 cap PO HS 09/12/22 11/12/22 History [Probiotic] [place]-3/Dha/Epa/Fish Oil [Fish Oil 1 cap PO BID 09/12/22 11/12/22 History 1,000 mg Softgel] Ubidecarenone [Co Q-10] 300 mg PO DAILY 09/12/22 11/12/22 History Cellwise 1 tab PO BID 11/12/22 11/12/22 History Cyanocobalamin (Vitamin B-12) 1,000 mcg PO DAILY 11/12/22 11/12/22 History [Vitamin B-12] Provexcv 1 tab PO BID 11/12/22 11/12/22 History Recover A1 1 tab PO BID 11/12/22 11/12/22 History Allergies Allergy/AdvReac Type Severity Reaction Status Date / Time No Known Allergies Allergy Verified 11/12/22 09:19 Surgical - Exam Vital Signs Temp Pulse Resp BP Pulse Ox 99.8 F H 114 H 18 112/76 96 11/11/22 22:30 11/11/22 22:30 11/11/22 22:30 11/11/22 22:30 11/11/22 22:30 Results - Labs 11/12/22 12:16 11/12/22 12:16 Abnormal Lab Results - Last 24 Hours (Table) 11/11/22 11/12/22 11/12/22 Range/Units 22:47 01:00 01:00 WBC 11.9 H (3.8-10.6) k/uL Neutrophils # 9.4 H (1.3-7.7) k/uL Glucose 118 H (74-99) mg/dL AST 129 H (14-36) U/L ALT 238 H (4-34) U/L Urine Appearance Slightly Cloudy H (Clear) Urine WBC 154 H (0-5) /hpf Urine Bacteria Many H (None) /hpf Urine Mucus Few H (None) /hpf Diabetes panel 11/12/22 Range/Units 01:00 Sodium 139 (137-145) mmol/L Potassium 3.5 (3.5-5.1) mmol/L Chloride 105 (98-107) mmol/L Carbon Dioxide 22 (22-30) mmol/L BUN 9 (7-17) mg/dL Creatinine 0.75 (0.52-1.04) mg/dL Glucose 118 H (74-99) mg/dL Calcium 9.5 (8.4-10.2) mg/dL AST 129 H (14-36) U/L ALT 238 H (4-34) U/L Alkaline Phosphatase 117 (38-126) U/L Total Protein 7.8 (6.3-8.2) g/dL Albumin 4.5 (3.5-5.0) g/dL Calcium panel 11/12/22 Range/Units 01:00 Calcium 9.5 (8.4-10.2) mg/dL Albumin 4.5 (3.5-5.0) g/dL Pituitary panel 11/12/22 Range/Units 01:00 Sodium 139 (137-145) mmol/L Potassium 3.5 (3.5-5.1) mmol/L Chloride 105 (98-107) mmol/L Carbon Dioxide 22 (22-30) mmol/L BUN 9 (7-17) mg/dL Creatinine 0.75 (0.52-1.04) mg/dL Glucose 118 H (74-99) mg/dL Calcium 9.5 (8.4-10.2) mg/dL Adrenal panel 11/12/22 Range/Units 01:00 Sodium 139 (137-145) mmol/L Potassium 3.5 (3.5-5.1) mmol/L Chloride 105 (98-107) mmol/L Carbon Dioxide 22 (22-30) mmol/L BUN 9 (7-17) mg/dL Creatinine 0.75 (0.52-1.04) mg/dL Glucose 118 H (74-99) mg/dL Calcium 9.5 (8.4-10.2) mg/dL Total Bilirubin 1.1 (0.2-1.3) mg/dL AST 129 H (14-36) U/L ALT 238 H (4-34) U/L Alkaline Phosphatase 117 (38-126) U/L Total Protein 7.8 (6.3-8.2) g/dL Albumin 4.5 (3.5-5.0) g/dL
[2022-11-12 12:40] LABS: Basophils % (A) 0 %; Eosinophils # (A) 0.3 k/uL (0-0.7); Eosinophils % (A) 3 %; HGB 12.9 gm/dL (11.4-16.0); Lymphocytes # (A) 1.6 k/uL (1.0-4.8); Lymphocytes % (A) 20 %; MCH 29.6 pg (25.0-35.0); MCV 89.6 fL (80.0-100.0); Mean Platelet Volume 7.4; Monocytes # (A) 0.4 k/uL (0-1.0); Monocytes % (A) 5 %; Neutrophils # (A) 5.5 k/uL (1.3-7.7); Neutrophils % (A) 69 %; Platelet Count 166 k/uL (150-450); RBC 4.35 m/uL (3.80-5.40); RDW 14.3 % (11.5-15.5); WBC 7.9 k/uL (3.8-10.6)
[2022-11-12 12:47] LABS: Prothrombin Time 10.6 sec (9.0-12.0)
[2022-11-12 12:52] LABS: ALT 161 U/L (4-34); AST 68 U/L (14-36); African American GFR (CKD) >90 (>60 ml/min/1.73 sqM); Albumin 3.5 g/dL (3.5-5.0); Albumin/Globulin Ratio 1.3; Alkaline Phosphatase 91 U/L (38-126); Anion Gap 5 mmol/L; Blood Urea Nitrogen 10 mg/dL (7-17); Calcium 8.4 mg/dL (8.4-10.2); Carbon Dioxide 27 mmol/L (22-30); Chloride 110 mmol/L (98-107); Globulin 2.6 g/dL; Glucose 90 mg/dL (74-99); Non-African American GFR(CKD) >90 (>60 ml/min/1.73 sqM); Potassium 3.8 mmol/L (3.5-5.1); Sodium 142 mmol/L (137-145); Total Bilirubin 0.8 mg/dL (0.2-1.3); Total Protein 6.1 g/dL (6.3-8.2)
--- NOTE | 2022-11-12 13:01 | P.CONS ---
History of Present Illness - Reason for Consult Consult date: 11/12/22 Possible choledocholithiasis Requesting physician: Eliezer Goldstein - Chief Complaint Abdominal pain - History of Present Illness This is a pleasant 61-year-old female who presented to the emergency department yesterday with complaints of upper abdominal pain. She states that Saturday pain started in her right upper quadrant and radiated to her back if then resolved. Saturday he continued however was more in the epigastric region and then yesterday continued across the whole upper abdomen. She had some associated nausea but no vomiting. States she has a history of cholelithiasis and has had upright 3-4 attacks over the last year, however she states this one was the worst that she has had. Past medical history includes cholelithiasis, GERD, IBS, bariatric surgery with gastric sleeve, and hiatal hernia. Today patient states abdominal pain has resolved. She has no nausea or vomiting. Denies any history of liver disease. CT abdomen and pelvis as well as gallbladder ultrasound shows cholelithiasis, possible acute cholecystitis with no evidence of CBD dilation. Gastroenterology was consulted for possible choledochal lithiasis. Admitting labs: WBC 11.9 hemoglobin 15.5 platelet count 216,000 sodium 139 potassium 3.5 BUN 9 creatinine 0.7. Total bilirubin 1.1 AST 129 AST 238 alkaline [address] abdomen and pelvis without IV contrast reports moderate gallbladder distention with wall thickening and surrounding inflammation concerning for acute cholecystitis. 1.1 cm lesion in the inferior pole of the right kidney with fat consistent with an angiomyolipoma. Reports no ductal dilation. Abdominal ultrasound reports multiple small layering gallstones with moderate gallbladder distention. No gallbladder wall thickening or pericholecystic fluid. Common bile duct measures 4.3 mm area no stones. No dilation. Review of Systems REVIEW OF SYSTEMS: CARDIOPULMONARY: No chest pain or shortness of breath. Gastrointestinal: Right upper quadrant, epigastric pain related with nausea but no vomiting. Now improved. No hematemesis, coffee-ground emesis. No rectal bleeding, or melena. GENITOURINARY: No dysuria or hematuria. MUSCULOSKELETAL: Reports normal range of motion. SKIN: No rashes. No jaundice. ENDOCRINE: No chills, fevers. No excessive weight gain or loss. No polydipsia or polyuria. PSYCHIATRIC: Unremarkable. NEUROLOGY: No change in mental status. Denies dizziness, headache. ENT: Vision unremarkable. CONSTITUTIONAL: No recent weight loss. No fever, chills, night sweats. Past Medical History Past Medical History: GERD/Reflux Additional Past Medical History / Comment(s): HIATAL HERNIA; IBS, bilateral hearing loss from , sleep apnea, GERD improved since surgery in August 2014 of Hiatal hernia and gastric sleeve History of Any Multi-Drug Resistant Organisms: ESBL, MRSA Year Discovered:: 11/05/19 MRSA 2012 MDRO Source:: LT EAR ESBL Past Surgical History: Bariatric Surgery, Orthopedic Surgery, Tubal Ligation Additional Past Surgical History / Comment(s): Bariatric sleeve in August 2014, bilateral knee total replacement (right knee February 2015, Left knee May 2015), left breast biopsy (negative in 2014) Past Anesthesia/Blood Transfusion Reactions: No Reported Reaction Past Psychological History: No Psychological Hx Reported Smoking Status: Former smoker Past Alcohol Use History: None Reported Past Drug Use History: None Reported - Past Family History Mother Family Medical History: Asthma, Cancer, COPD Additional Family Medical History / Comment(s): colon cancer 2015, Father History Unknown: Yes Medications and Allergies Home Medications Medication Instructions Recorded Confirmed Type Multivitamins, Thera [Multivitamin] 1 tab PO BID 11/09/15 11/12/22 History Cholecalciferol [Vitamin D3 (25 25 mcg PO DAILY 09/12/22 11/12/22 History Mcg = 1000 Iu)] L.acidoph,Paracasei, B.lactis 1 cap PO HS 09/12/22 11/12/22 History [Probiotic] [place]-3/Dha/Epa/Fish Oil [Fish Oil 1 cap PO BID 09/12/22 11/12/22 History 1,000 mg Softgel] Ubidecarenone [Co Q-10] 300 mg PO DAILY 09/12/22 11/12/22 History Cellwise 1 tab PO BID 11/12/22 11/12/22 History Cyanocobalamin (Vitamin B-12) 1,000 mcg PO DAILY 11/12/22 11/12/22 History [Vitamin B-12] Provexcv 1 tab PO BID 11/12/22 11/12/22 History Recover A1 1 tab PO BID 11/12/22 11/12/22 History Allergies Allergy/AdvReac Type Severity Reaction Status Date / Time No Known Allergies Allergy Verified 11/12/22 09:19 Physical Exam Vitals: Vital Signs Temp Pulse Pulse Resp BP BP Pulse Ox 11/12/22 09:27 85 16 11/12/22 06:45 98.4 F 85 16 118/76 97 11/12/22 05:59 97.8 F 83 20 108/70 97 11/12/22 05:00 83 20 136/71 96 11/11/22 22:30 99.8 F H 114 H 18 112/76 96 Intake and Output 11/11/22 11/12/22 11/12/22 22:59 06:59 14:59 Other: Weight 127.006 kg 127.006 kg General appearance: The patient is alert, oriented, appears in no acute distress . HET: Head is normocephalic and atraumatic. Conjunctiva pink. Sclera anicteric. Neck: Supple without lymphadenopathy. Trachea midline. Heart: S1 S2. Regular rate and rhythm. Lungs: Clear to auscultation. Abdomen: Soft, right upper quadrant and epigastric tenderness with palpation, nondistended with bowel sounds. No guarding or rigidity. Skin: No rashes. No jaundice. Extremities: Normal skin color and turgor. No pedal edema. Neurological: No focal deficits. Alert and oriented x3. Results CBC & Chem 7: 11/12/22 12:16 11/12/22 12:16 Labs: Abnormal Lab Results - Last 24 Hours (Table) 11/11/22 11/12/22 11/12/22 Range/Units 22:47 01:00 01:00 WBC 11.9 H (3.8-10.6) k/uL Neutrophils # 9.4 H (1.3-7.7) k/uL Glucose 118 H (74-99) mg/dL AST 129 H (14-36) U/L ALT 238 H (4-34) U/L Urine Appearance Slightly Cloudy H (Clear) Urine WBC 154 H (0-5) /hpf Urine Bacteria Many H (None) /hpf Urine Mucus Few H (None) /hpf CT scan - abdomen: report reviewed (See HPI for details) US - abdomen: report reviewed (See HPI for details) Assessment and Plan (1) Elevated liver enzymes Narrative/Plan: 61-year-old female with known history of gallstones with multiple attacks over the last year presenting for acute abdominal pain. CT abdomen and pelvis rep orts gallbladder wall thickening possible acute cholecystitis. Gallbladder ultrasound with gallbladder thickening and layering of stones however both without any evidence of CBD stone or CBD dilation. Total bilirubin 1.1 AST 129 and 4238 alkaline phosphatase 117. Overall does not look like a cholestatic pattern, patient likely has 30 passed stone. No MRCP or ERCP indicated at this time. Recommend proceeding with cholecystectomy as scheduled. Current Visit: Yes Status: Acute Code(s): R74.8 - ABNORMAL LEVELS OF OTHER SERUM ENZYMES SNOMED Code(s): 324247138 (2) Abdominal pain Current Visit: Yes Status: Acute Code(s): R10.9 - UNSPECIFIED ABDOMINAL PAIN SNOMED Code(s): 56899042 Plan: 1. Continue symptomatic and supportive care 2. Diet per general surgery 3. CBC, CMP reviewed with improvement in LFTs 4. PT INR ordered 5. No indication for MRCP or ERCP at this time 6. Recommend proceeding with planned cholecystectomy Thank you for this consultation, we will continue to follow. Dr. Oh An I agree with the dictator's note, documented as a scribe by Hilda Price.
[2022-11-12] MEDS: AMPICILLIN-SULBACTAM 3 GM in SODIUM CHLORIDE 0.9% 100 ML IVPB SCH ×2 (13:50→22:23)
[2022-11-13] MEDS: AMPICILLIN-SULBACTAM 3 GM in SODIUM CHLORIDE 0.9% 100 ML IVPB SCH ×2 (06:03→17:47)
[2022-11-13 07:21] LABS: HGB 13.1 gm/dL (11.4-16.0); MCH 29.6 pg (25.0-35.0); MCHC 33.7 g/dL (31.0-37.0); MCV 87.8 fL (80.0-100.0); Mean Platelet Volume 7.7; Platelet Count 198 k/uL (150-450); RBC 4.44 m/uL (3.80-5.40); RDW 14.1 % (11.5-15.5)
[2022-11-13 07:31] LABS: ALT 117 U/L (4-34); AST 45 U/L (14-36); African American GFR (CKD) >90 (>60 ml/min/1.73 sqM); Albumin 3.7 g/dL (3.5-5.0); Albumin/Globulin Ratio 1.4; Alkaline Phosphatase 88 U/L (38-126); Anion Gap 8 mmol/L; Blood Urea Nitrogen 7 mg/dL (7-17); Calcium 8.8 mg/dL (8.4-10.2); Carbon Dioxide 22 mmol/L (22-30); Chloride 110 mmol/L (98-107); Globulin 2.7 g/dL; Glucose 88 mg/dL (74-99); Non-African American GFR(CKD) >90 (>60 ml/min/1.73 sqM); Potassium 3.6 mmol/L (3.5-5.1); Sodium 140 mmol/L (137-145); Total Bilirubin 0.9 mg/dL (0.2-1.3); Total Protein 6.4 g/dL (6.3-8.2)
[2022-11-13] MEDS: SODIUM CHLORIDE 0.9% 1,000 ML IV SCH ×2 (09:45→16:36)
--- NOTE | 2022-11-13 12:01 | P.PN ---
Subjective Progress Note Date: 11/13/22 Principal diagnosis: Cholelithiasis, acute cholecystitis Patient seen and examined today as a follow-up. Gastroenterology was consulted for possible choledochal lithiasis related to elevated LFTs. LFTs continue to trend down. Patient's pain improved. CT imaging as well as ultrasound with no evidence of CBD dilation or CBD stone. Patient is scheduled today for cholecystectomy. Again she denies any abdominal pain, no nausea or vomiting. WBC 9.0 hemoglobin 13.1 platelet count 198,000 total bilirubin 0.9 AST 45 atrial T1 17 alkaline phosphatase 88 Objective - Vital Signs Vital signs: Vital Signs Temp 98.1 F 11/13/22 07:15 Pulse 67 11/13/22 07:15 Resp 18 11/13/22 07:15 BP 147/71 11/13/22 07:15 Pulse Ox 97 11/13/22 07:15 FiO2 Intake & Output 11/12/22 11/13/22 11/13/22 18:59 06:59 18:59 Intake Total 480 Balance 480 Intake: Oral 480 Other: Voiding Method Toilet # Voids 2 2 - Exam General appearance: The patient is alert, oriented, appears in no acute distress. HET: Head is normocephalic and atraumatic. Conjunctiva pink. Sclera anicteric. Neck: Supple without lymphadenopathy. Abdomen: Soft, mild right upper quadrant tenderness, nondistended with bowel sounds. No guarding or rigidity. Extremities: Normal skin color and turgor. No pedal edema Skin: No rashes, no jaundice Neurological: No focal deficits. Alert and oriented. - Labs CBC & Chem 7: 11/13/22 06:41 11/13/22 06:41 Labs: Abnormal Lab Results - Last 24 Hours (Table) 11/12/22 11/13/22 Range/Units 12:16 06:41 Chloride 110 H 110 H (98-107) mmol/L Creatinine 0.49 L (0.52-1.04) mg/dL AST 68 H 45 H (14-36) U/L ALT 161 H 117 H (4-34) U/L Total Protein 6.1 L (6.3-8.2) g/dL Microbiology - Last 24 Hours (Table) 11/11/22 22:47 Urine Culture - Preliminary Urine,Voided Gram Neg Bacilli Assessment and Plan (1) Elevated liver enzymes Narrative/Plan: 61-year-old female with known history of gallstones with multiple attacks over the last year presenting for acute abdominal pain. CT abdomen and pelvis reports gallbladder wall thickening possible acute cholecystitis. Gallbladder ultrasound with gallbladder thickening and layering of stones however both without any evidence of CBD stone or CBD dilation. Total bilirubin 1.1 AST 129 and 4238 alkaline phosphatase 117. Overall does not look like a cholestatic pattern, patient likely has 30 passed stone. No MRCP or ERCP indicated at this time. Recommend proceeding with cholecystectomy as scheduled. Current Visit: Yes Status: Acute Code(s): R74.8 - ABNORMAL LEVELS OF OTHER SERUM ENZYMES SNOMED Code(s): 136889050 (2) Abdominal pain Current Visit: Yes Status: Acute Code(s): R10.9 - UNSPECIFIED ABDOMINAL PAIN SNOMED Code(s): 46198982 (3) Acute cholecystitis Current Visit: Yes Status: Acute Code(s): K81.0 - ACUTE CHOLECYSTITIS SNOMED Code(s): 28232140 Plan: 1. Continue symptomatic and supportive care 2. Diet per general surgery 3. CBC, CMP reviewed with improvement in LFTs 4. No indication for MRCP or ERCP at this time 5. Recommend proceeding with planned cholecystectomy Thank you for this consultation, we will sign off at this time. Dr. Oh An I agree with the dictator's note, documented as a scribe by Hilda Price.
[2022-11-13] MEDS ORDERED: IV FLUID CONTINUATION 200 ML IV ONE (12:45)
[2022-11-13] MEDS ORDERED: ONDANSETRON 4 MG/2 ML VIAL IVP ONE (13:20)
[2022-11-13] MEDS ORDERED: DEXAMETHASONE SOD PHOSPHATE 4 MG/ML 1 ML VIAL IVP ONE (13:20)
[2022-11-13] MEDS ORDERED: BUPIVACAINE (PF) 0.25% 30 ML VIAL SQ ONE ×2 (13:29→14:33)
[2022-11-13] MEDS ORDERED: LACTATED RINGERS 1,000 ML IV ONE ×3 (13:48→17:34)
[2022-11-13] MEDS ORDERED: HEPARIN SODIUM,PORCINE/PF 5,000 UNIT/0.5 ML SYRINGE SQ ONE (13:52)
[2022-11-13] MEDS ORDERED: HEPARIN SODIUM,PORCINE 5,000 UNIT/ML 1 ML VIAL SQ ONE (13:58)
[2022-11-13] MEDS ORDERED: SUCCINYLCHOLINE CHLORIDE 200 MG/10 ML VIAL IV ONE (14:00)
[2022-11-13] MEDS ORDERED: GLYCOPYRROLATE 0.2 MG/ML 2 ML VIAL ONE (14:00)
[2022-11-13] MEDS ORDERED: PROPOFOL 10 MG/ML 20 ML VIAL IV ONE (14:00)
[2022-11-13] MEDS ORDERED: fentaNYL (PF) 50 MCG/ML 2 ML AMP ONE (14:00)
[2022-11-13] MEDS ORDERED: HYDROmorphone (PF) 1 MG/ML ONE (14:00)
[2022-11-13] MEDS ORDERED: LIDOCAINE 2% INJ 20 MG/ML (2 ML VIAL) ONE (14:00)
[2022-11-13] MEDS ORDERED: MIDAZOLAM 2 MG/2 ML VIAL ONE (14:00)
[2022-11-13] MEDS ORDERED: NEOSTIGMINE 1 MG/ML 10 ML VIAL ONE (14:00)
[2022-11-13] MEDS ORDERED: ROCURONIUM 10 MG/ML (5 ML VIAL) IV ONE (14:00)
[2022-11-13] MEDS ORDERED: SODIUM CHLORIDE 0.9% 50 ML with ceFAZolin 2,000 MG IV ONE ×2 (14:02)
--- NOTE | 2022-11-13 15:45 | P.OP ---
Date of Procedure: 11/13/22 Procedure(s) Performed: PREOPERATIVE DIAGNOSIS: Acute cholecystitis POSTOPERATIVE DIAGNOSIS: Same PROCEDURE: Laparoscopic cholecystectomy SURGEON: Angelita EBL: 50 mL ANESTHESIA: Gen. COMPLICATIONS: None OPERATIVE PROCEDURE: The patient was brought and placed on the operating room table in the supine position. The patient was placed under general anesthesia at that time. The abdomen was prepped and draped in the usual sterile fashion. A small vertical infraumbilical incision was made. The fascia was grasped with the Bryan forceps. The fascia was retracted anteriorly. The Veress needle was advanced into the peritoneal cavity. The saline drop test was normal. Insufflation took place up to 15 mmHg. A 5 mm optical trocar was advanced and the peritoneal cavity. 2 additional 5 mm trochars were placed in the right upper quadrant under direct visualization. A 12 mm trocar was advanced into the epigastric incision site. The gallbladder was acutely inflamed. It was quite distended with a thickened wall. A small opening was made in the fundus of the gallbladder and the contents were evacuated. The gallbladder was retracted superiorly and laterally. The peritoneum overlying the infundibulum was bluntly dissected. The patient's cystic duct was visualized. The junction between the cystic duct common and hepatic duct was identified. The critical view of safety was achieved after blunt dissection. The cystic duct was then divided after placement of a 2-0 Ethibond stitch and a clip on the patient's side as well as a clip on the specimen side. The adjacent cystic artery was identified and clipped as well. A small vessel was seen along the gallbladder fossa and clipped as well. The gallbladder was then removed from the liver bed using electrocautery. As the liver bed was inspected there was a small area of bilious drainage from the lateral aspect of the gallbladder fossa midway up the dissection. This was well away from any ductal structures. This appeared to represent a duct of Lushka. A clip was deployed there. No further bilious drainage was seen. The gallbladder was then removed from the epigastric trocar site with an Endo Catch bag. The gallbladder fossa was irrigated with saline. There was no evidence of any bleeding or biliary drainage seen. A drain was placed in the gallbladder fossa because of the acute inflammatory change and the suspected accessory duct. The fascia at the 12 millimeter site was closed using a MinoAlejandra 0 Vicryl stitch. The trochars were then removed. The skin at all 4 sites was closed using a 4-0 Monocryl stitch. Skin glue was utilized on the incision sites. At the end of this procedure the sponge and needle counts were correct. DISPOSITION: Stable to the recovery room
--- NOTE | 2022-11-13 18:51 | P.PN ---
Subjective Progress Note Date: 11/13/22 Hospital Course: Patient is a very pleasant 61-year-old female with a past medical history of GERD, cholelithiasis, and morbid obesity status post bariatric surgery with gastric sleeve placement in 2014. She presented to the emergency department with a chief complaint of abdominal pain 3 days accompanied by nausea. . Patient reports pain is a sharp colicky pain that occasionally radiates into right flank and back. Patient reports she has had this pain in the past and it has been related to her gallbladder, but reports today it is much worse. She denies any episodes of vomiting, fevers, chills, diaphoresis, headache, lightheadedness, dizziness, chest pain, palpitations, shortness of breath, cough or congestion, vomiting, or experiencing any changes in or difficulties with urinary or bowel function. She underwent full evaluation in the emergency de partment. CBC revealing leukocytosis with WBC count of 11.9. BMP unremarkable. Liver profile revealing elevated liver enzymes with AST of 129 and ALT of 238. Amylase and lipase normal findings. Urinalysis positive for infection. Urine culture sent to lab for analysis. Blood culture sent to lab for analysis. Abdominal ultrasound showing multiple small layering gallstones with moderate gallbladder distention and no reported gallbladder wall thickening or pericholecystic fluid. CT abdomen and pelvis without contrast showing moderate gallbladder distention with wall thickening and surrounding inflammation concerning for acute cholecystitis and a 1.1 cm lesion in the inferior hole of the right kidney with fat consistent with an angiomyolipoma. EKG complete showing sinus rhythm with frequent PVCs at 85 bpm upon personal review and interpretation. Patient was started on IV antibiotics with Unasyn and admitted under general surgery team. We were consulted for medical management throughout hospitalization. Patient scheduled to undergo laparoscopic cholecystectomy later today. Physical exam: Vital signs reviewed and stable. General: Nontoxic, no distress and appears stated age. Derm: Skin warm and dry, normal coloration for ethnicity. Head: Atraumatic, normocephalic and symmetric. Eyes: EOMs intact, no lid lag, and anicteric sclera Mouth: no lip lesions, mucus membranes moist Cardiovascular: regular rate and rhythm with normal S1S2, no murmur, positive posterior tibial pulses bilaterally, and cap refill < 2 seconds. Lungs: Respirations even, regular, and unlabored on room air. Lungs CTA bilaterally, no rhonchi, no rales, no wheezing, and no accessory muscle usage. Abdominal: Soft, nondistended. Patient reports slight tenderness upon palpation of right upper quadrant. Ext: ROM intact. No gross muscle atrophy, no edema, no contractures Neuro: Speech clear, face symmetrical and CN II-XII grossly intact with no noted focal neuro deficits Psych: Alert and oriented to person, place, time, and situation. Appropriate and pleasant affect. Assessment and Plan of Care: Data review: -Urinalysis positive for infection. Urine culture preliminarily showing positive results for gram-negative bacilli. -Blood cultures showing no growth to date -Morning labs reviewed. CBC unremarkable showing continued resolution of leukocytosis with WBC count of 9.0 and stable hemoglobin of 13.1. BMP unremarkable. Liver profile showing continued improvement of liver enzymes from previous AST of 129 and ALT of 238 down to AST of 45 and ALT of 117 this morning. -Vital signs reviewed and stable. Blood pressure 147/71, heart rate 67, respiratory rate 18, temp 98.1F, and SpO2 of 97% on room air. Imaging reviewed: -No new imaging for review. Acute cholecystitis with elevated liver enzymes Acute cystitis without hematuria Sepsis, secondary to above. Elevated liver enzymes History of GERD Morbid obesity with BMI of 43.9 kg/m -Patient to continue IV antibiotics with Unasyn 3 g every 8 hours pending final culture and sensitivity reports. -Gastroenterology consulted secondary to elevated liver enzymes, discussed plan of care with gastroenterology ENTRY LEVEL ELECTRICIAN stating no indication for MRCP or ERCP at this time and recommend an proceeding with cholecystectomy.. -Gen. surgery taken patient for laparoscopic cholecystectomy later today. -We will follow up on final blood cultures and urine culture results along with postoperative CBC and CMP. Thank you for allowing us to participate in the care of this pleasant patient. Do not hesitate to contact us with questions. Someone can be reached from the [facility] hospitalist group all hours of the day at [phone] or via [employer]. Patient was seen independently by Nurse Practitioner. This document was prepared using [employer] dictation software. Please allow for errors in gum dipper while rare they do occur. Bernard Hernandes NP rendered care for this patient independently, reviewed the findings and plan as documented in the note above. I did not physically speak with or examine the patient on this date. Objective - Vital Signs Vital signs: Vital Signs Temp 98.3 F 11/13/22 01:01 Pulse 76 11/13/22 01:01 Resp 17 11/12/22 19:57 BP 127/69 11/13/22 01:01 Pulse Ox 95 11/13/22 01:01 FiO2 Intake & Output 11/12/22 11/13/22 11/13/22 18:59 06:59 18:59 Intake Total 480 Balance 480 Intake: Oral 480 Other: Voiding Method Toilet # Voids 2 2 - Labs CBC & Chem 7: 11/13/22 06:41 11/13/22 06:41 Labs: Abnormal Lab Results - Last 24 Hours (Table) 11/12/22 11/13/22 Range/Units 12:16 06:41 Chloride 110 H 110 H (98-107) mmol/L Creatinine 0.49 L (0.52-1.04) mg/dL AST 68 H 45 H (14-36) U/L ALT 161 H 117 H (4-34) U/L Total Protein 6.1 L (6.3-8.2) g/dL
[2022-11-13] MEDS: MORPHINE SULFATE 4 MG/ML SYRINGE IV PRN (20:13)
[2022-11-14] MEDS: AMPICILLIN-SULBACTAM 3 GM in SODIUM CHLORIDE 0.9% 100 ML IVPB SCH ×3 (00:16→16:54)
[2022-11-14] MEDS: MORPHINE SULFATE 4 MG/ML SYRINGE IV PRN ×3 (00:25→15:05)
[2022-11-14] MEDS: SODIUM CHLORIDE 0.9% 1,000 ML IV SCH ×3 (06:56→13:56)
[2022-11-14 11:53] LABS: Basophils # (A) 0.03 X 10*3/uL (0.00-0.10); Basophils % (A) 0.3 %; Eosinophils # (A) 0.02 X 10*3/uL (0.04-0.35); Eosinophils % (A) 0.2 %; HCT 38.7 % (37.2-46.3); HGB 12.5 d/dL (12.0-15.0); Lymphocytes # (A) 1.24 X 10*3/uL (0.90-5.00); Lymphocytes % (A) 11.9 %; MCH 28.5 pg (27.0-32.0); MCHC 32.3 d/dL (32.0-37.0); MCV 88.2 FL (80.0-97.0); Mean Platelet Volume 10.4 FL (9.5-12.2); Monocytes # (A) 0.57 X 10*3/uL (0.20-1.00); Monocytes % (A) 5.5 %; NRBC Per 100 WBC 0 X 10*3/uL (0.00-0.01); Neutrophils # (A) 8.53 X 10*3/uL (1.80-7.70); Neutrophils % (A) 81.8 %; Platelet Count 243 X 10*3/uL (140-440); RBC 4.39 X 10*6/uL (4.10-5.20); RDW 13.7 % (11.5-14.5); WBC 10.42 X 10*3/uL (4.50-10.00)
[2022-11-14 12:09] LABS: ALT 106 U/L (8-44); AST 46 U/L (13-35); Albumin/Globulin Ratio 1.82 Ratio (1.60-3.17); Alkaline Phosphatase 89 U/L (41-126); Blood Urea Nitrogen 5.4 mg/dL (9.0-27.0); Calcium 9.3 mg/dL (8.7-10.3); Carbon Dioxide 24.5 mmol/L (21.6-31.8); Chloride 106 mmol/L (96-109); Globulin 2.2 d/dL (1.6-3.3); Glucose 99 mg/dL (70-110); Potassium 4.1 mmol/L (3.5-5.5); Sodium 141 mmol/L (135-145); Total Bilirubin 0.4 mg/dL (0.3-1.2); Total Protein 6.2 d/dL (6.2-8.2)
--- NOTE | 2022-11-14 13:41 | P.PN ---
Subjective Progress Note Date: 11/14/22 CHIEF COMPLAINT: Acute cholecystitis HISTORY OF PRESENT ILLNESS: Patient postop day #1 status post laparoscopic cholecystectomy. Patient rates her pain a 7 out of 10. She does report that is controlled with pain medication. She denies any nausea vomiting. She is having flatus. MELQUIADES drain with 60 mL output last night 30 and output this morning of serosanguineous fluid. Patient tolerating clear liquids. She does not feel ready for discharge. Afebrile. WBC is 10.4 to HCV B12 0.5 platelets 243 sodium is 141 potassium is 4.1 creatinine 0.6 total bilirubin 0.4 AST 46 ALT 106 PHYSICAL EXAM: VITAL SIGNS: Reviewed. GENERAL: Well-developed in no acute distress. ABDOMEN: Soft. Nondistended. Tender incision sites NEUROLOGIC: Alert and oriented. Cranial nerves II through XII grossly intact. ASSESSMENT: 1. Acute cholecystitis status post laparoscopic cholecystectomy PLAN: -Add [place] for oral pain medication -Advance diet to low-fat, pureed -Encourage patient to ambulate -Encourage patient to use incentive spirometer -DVT prophylaxis subcu Heparin and Gi prophylaxis Pepcid Physician Audio/Visual Manager note has been reviewed by physician. Signing provider agrees with the documented findings, assessment, and plan of care. Objective - Vital Signs Vital signs: Vital Signs Temp 97.9 F 11/14/22 07:45 Pulse 69 11/14/22 09:37 Resp 18 11/14/22 07:45 BP 150/73 11/14/22 07:45 Pulse Ox 98 11/14/22 07:45 FiO2 Intake & Output 11/13/22 11/14/22 11/14/22 18:59 06:59 18:59 Intake Total 2440 Output Total 50 Balance 2390 Intake: IV 2200 Oral 240 Output: Estimated Blood Loss 50 Other: Voiding Method Toilet # Voids 0 3 - Labs CBC & Chem 7: 11/14/22 06:56 11/14/22 06:56 Labs: Abnormal Lab Results - Last 24 Hours (Table) 11/14/22 11/14/22 Range/Units 06:56 06:56 WBC 10.42 H (4.50-10.00) X 10*3/uL Neutrophils # 8.53 H (1.80-7.70) X 10*3/uL Eosinophils # 0.02 L (0.04-0.35) X 10*3/uL BUN 5.4 L (9.0-27.0) mg/dL BUN/Creatinine Ratio 9.00 L (12.00-20.00) Ratio AST 46 H (13-35) U/L ALT 106 H (8-44) U/L Microbiology - Last 24 Hours (Table) 11/12/22 02:15 Blood Culture - Preliminary Blood 11/12/22 02:30 Blood Culture - Preliminary Blood
[2022-11-14] MEDS: HYDROcodone/APAP 5-325MG 1 EACH TAB PO PRN ×3 (13:54→22:59)
--- NOTE | 2022-11-14 14:41 | P.PN ---
Subjective Progress Note Date: 11/14/22 Hospital Course: Patient is a very pleasant 61-year-old female with a past medical history of GERD, cholelithiasis, and morbid obesity status post bariatric surgery with gastric sleeve placement in 2014. She presented to the emergency department with a chief complaint of abdominal pain 3 days accompanied by nausea. . Patient reports pain is a sharp colicky pain that occasionally radiates into right flank and back. Patient reports she has had this pain in the past and it has been related to her gallbladder, but reports today it is much worse. She denies any episodes of vomiting, fevers, chills, diaphoresis, headache, lightheadedness, dizziness, chest pain, palpitations, shortness of breath, cough or congestion, vomiting, or experiencing any changes in or difficulties with urinary or bowel function. She underwent full evaluation in the emergency de partment. CBC revealing leukocytosis with WBC count of 11.9. BMP unremarkable. Liver profile revealing elevated liver enzymes with AST of 129 and ALT of 238. Amylase and lipase normal findings. Urinalysis positive for infection. Urine culture sent to lab for analysis. Blood culture sent to lab for analysis. Abdominal ultrasound showing multiple small layering gallstones with moderate gallbladder distention and no reported gallbladder wall thickening or pericholecystic fluid. CT abdomen and pelvis without contrast showing moderate gallbladder distention with wall thickening and surrounding inflammation concerning for acute cholecystitis and a 1.1 cm lesion in the inferior hole of the right kidney with fat consistent with an angiomyolipoma. EKG complete showing sinus rhythm with frequent PVCs at 85 bpm upon personal review and interpretation. Patient was started on IV antibiotics with Unasyn and admitted under general surgery team. We were consulted for medical management throughout hospitalization. Patient scheduled to undergo laparoscopic cholecystectomy later today. Physical exam: Vital signs reviewed and stable. General: Nontoxic, no distress and appears stated age. Derm: Skin warm and dry, normal coloration for ethnicity. Head: Atraumatic, normocephalic and symmetric. Eyes: EOMs intact, no lid lag, and anicteric sclera Mouth: no lip lesions, mucus membranes moist Cardiovascular: regular rate and rhythm with normal S1S2, no murmur, positive posterior tibial pulses bilaterally, and cap refill < 2 seconds. Lungs: Respirations even, regular, and unlabored on room air. Lungs CTA bilaterally, no rhonchi, no rales, no wheezing, and no accessory muscle usage. Abdominal: Soft, nondistended. Patient reports slight tenderness to laparoscopic surgical sites otherwise denies any complaints other than feeling of distention. Ext: ROM intact. No gross muscle atrophy, no edema, no contractures Neuro: Speech clear, face symmetrical and CN II-XII grossly intact with no noted focal neuro deficits Psych: Alert and oriented to person, place, time, and situation. Appropriate and pleasant affect. Assessment and Plan of Care: Data review: -Urinalysis positive for infection. Urine culture preliminarily showing positive results for gram-negative bacilli. -Blood cultures showing no growth to date -Morning labs reviewed. CBC showing mild leukocytosis with WBC count of 10.42 otherwise normal findings. BMP unremarkable. Liver function continues to show improvement with AST of 46 and ALT of 106. -Vital signs reviewed and stable. Blood pressure 150/73, heart rate 69, respiratory rate 18, temperature 97.9F, SpO2 of 98% on 2 L O2 via nasal cannula. Imaging reviewed: -No new imaging for review. Acute cholecystitis with elevated liver enzymes Acute cystitis without hematuria Sepsis, secondary to above. Elevated liver enzymes History of GERD Morbid obesity with BMI of 43.9 kg/m -Patient to continue IV antibiotics with Unasyn 3 g every 8 hours pending final culture and sensitivity reports. -Gen. surgery took patient for laparoscopic cholecystectomy 11/13/22. -Patient is postoperative day 1 and appears to be doing well. -We will follow up on final blood cultures and urine culture results along with CBC and CMP. -Continuous symptomatic care and pain management with morphine 4 mg IVP every 4 hours as needed for severe pain, and [place] 5/325 mg tablets every 4 hours as needed for [id number] pain. -Patient tolerated clear liquid diet and IV fluids discontinued at this time. Thank you for allowing us to participate in the care of this pleasant patient. Do not hesitate to contact us with questions. Someone can be reached from the [facility] [place] [facility] [place] hospitalist group all hours of the day at [phone] or via [employer]. Patient was seen independently by Nurse Practitioner. This document was prepared using [employer] dictation software. Please allow for errors in inspector open die while rare they do occur. I reviewed the documentation as provided by the ANEL above, who is the original author of this note. I agree with the documented assessment and plan, with the following changes: none Objective - Vital Signs Vital signs: Vital Signs Temp 97.9 F 11/14/22 07:45 Pulse 69 11/14/22 07:45 Resp 18 11/14/22 07:45 BP 150/73 11/14/22 07:45 Pulse Ox 98 11/14/22 07:45 FiO2 Intake & Output 11/13/22 11/14/22 11/14/22 18:59 06:59 18:59 Intake Total 2440 Output Total 50 Balance 2390 Intake: IV 2200 Oral 240 Output: Estimated Blood Loss 50 Other: Voiding Method Toilet # Voids 0 3 - Labs CBC & Chem 7: 11/15/22 05:51 11/15/22 05:51 Labs: Microbiology - Last 24 Hours (Table) 11/12/22 02:15 Blood Culture - Preliminary Blood 11/12/22 02:30 Blood Culture - Preliminary Blood 11/11/22 22:47 Urine Culture - Preliminary Urine,Voided Gram Neg Bacilli
[2022-11-14] MEDS: HEPARIN SODIUM,PORCINE/PF 5,000 UNIT/0.5 ML SYRINGE SQ SCH (20:59)
[2022-11-14] MEDS: FAMOTIDINE 20 MG TAB PO SCH (20:59)
[2022-11-14 21:40] VITALS: RESP 18
[2022-11-15] MEDS: AMPICILLIN-SULBACTAM 3 GM in SODIUM CHLORIDE 0.9% 100 ML IVPB SCH ×2 (00:01→08:58)
[2022-11-15] MEDS: HYDROcodone/APAP 5-325MG 1 EACH TAB PO PRN ×2 (04:00→09:09)
[2022-11-15 08:00] VITALS: BP 144/75; PULSE 68; TEMP 97.8
[2022-11-15] MEDS: FAMOTIDINE 20 MG TAB PO SCH (09:09)
[2022-11-15] MEDS: HEPARIN SODIUM,PORCINE/PF 5,000 UNIT/0.5 ML SYRINGE SQ SCH (09:09)
[2022-11-15 12:12] LABS: HCT 37.7 % (37.2-46.3); HGB 11.8 d/dL (12.0-15.0); MCH 28.5 pg (27.0-32.0); MCHC 31.3 d/dL (32.0-37.0); MCV 91.1 FL (80.0-97.0); Mean Platelet Volume 10.1 FL (9.5-12.2); NRBC Per 100 WBC 0 X 10*3/uL (0.00-0.01); Platelet Count 192 X 10*3/uL (140-440); RBC 4.14 X 10*6/uL (4.10-5.20); RDW 14.4 % (11.5-14.5); WBC 6.26 X 10*3/uL (4.50-10.00)
--- NOTE | 2022-11-15 12:31 | P.DS ---
Providers Date of admission: 11/12/22 05:22 Expected date of discharge: 11/15/22 Attending physician: Eliezer Goldstein Consults: 11/12/22 08:34 Consult Physician Routine Consulting Provider: Lexus Goldsmith Consult Reason/Comments: medical management Do you want consulting provider notified?: Yes [facility] Course: Discharge diagnosis 1. Acute cholecystitis status post laparoscopic cholecystectomy Hospital course This is a 61-year-old female who presented with right upper quadrant abdominal pain. Abdominal ultrasound shows multiple small layering gallstones with moderate gallbladder distention. No gallbladder wall thickening or pericholecystic fluid. Patient did have elevated liver enzymes. She likely passed a stone. Patient evaluated by GI service and no intervention done. Patient is status post laparoscopic cholecystectomy. She tolerated surgery well. Her pain is controlled. She is tolerating diet. She is having flatus. She has been up and ambulating. She's afebrile. She is stable for discharge. Please refer to chart for any further details. Physician Cryptographic Machine Operator note has been reviewed by physician. Signing provider agrees with the documented findings, assessment, and plan of care. Patient Condition at Discharge: Stable Plan - Discharge Summary New Discharge Prescriptions: New Docusate [Colace] 100 mg PO BID #30 capsule HYDROcodone/APAP 5-325MG [Panther 5-325] 1 tab PO Q6HR PRN 3 Days #12 tab PRN Reason: Pain Continue Multivitamins, Thera [Multivitamin (formulary)] 1 tab PO BID Ubidecarenone [Co Q-10] 300 mg PO DAILY Cholecalciferol [Vitamin D3 (25 Mcg = 1000 Iu)] 25 mcg PO DAILY Provexcv 1 tab PO BID Cellwise 1 tab PO BID Cyanocobalamin (Vitamin B-12) [Vitamin B-12] 1,000 mcg PO DAILY Recover A1 1 tab PO BID Webster-3/Dha/Epa/Fish Oil [Fish Oil 1,000 mg Softgel] 1 cap PO BID L.acidoph,Paracasei, B.lactis [Probiotic] 1 cap PO HS Discharge Medication List Multivitamins, Thera [Multivitamin (formulary)] 1 tab PO BID 11/09/15 [History] Cholecalciferol [Vitamin D3 (25 Mcg = 1000 Iu)] 25 mcg PO DAILY 09/12/22 [History] L.acidoph,Paracasei, B.lactis [Probiotic] 1 cap PO HS 09/12/22 [History] Webster-3/Dha/Epa/Fish Oil [Fish Oil 1,000 mg Softgel] 1 cap PO BID 09/12/22 [History] Ubidecarenone [Co Q-10] 300 mg PO DAILY 09/12/22 [History] Cellwise 1 tab PO BID 11/12/22 [History] Cyanocobalamin (Vitamin B-12) [Vitamin B-12] 1,000 mcg PO DAILY 11/12/22 [History] Provexcv 1 tab PO BID 11/12/22 [History] Recover A1 1 tab PO BID 11/12/22 [History] Docusate [Colace] 100 mg PO BID #30 capsule 11/15/22 [Rx] HYDROcodone/APAP 5-325MG [Panther 5-325] 1 tab PO Q6HR PRN 3 Days #12 tab 11/15/22 [Rx] Follow up Appointment(s)/Referral(s): Haroon Horne DO [Primary Care Provider] - 1-2 days Eliezer Goldstein MD [Medical Doctor] - 1 Week Activity/Diet/Wound Care/Special Instructions: No driving while taking Panther No lifting over 10 pounds You may shower. No soaking or tub baths for 2 weeks Very light activity until you are reevaluated at your follow up appointment with your surgeon Keep a log of MELQUIADES drain output and bring with you to your follow-up appointment Milk/strip drains 2-3 times a day Discharge Disposition: HOME SELF-CARE
--- NOTE | 2022-11-15 14:15 | P.PN ---
Subjective Progress Note Date: 11/15/22 Hospital Course: Patient is a very pleasant 61-year-old female with a past medical history of GERD, cholelithiasis, and morbid obesity status post bariatric surgery with gastric sleeve placement in 2014. She presented to the emergency department with a chief complaint of abdominal pain 3 days accompanied by nausea. . Patient reports pain is a sharp colicky pain that occasionally radiates into right flank and back. Patient reports she has had this pain in the past and it has been related to her gallbladder, but reports today it is much worse. She denies any episodes of vomiting, fevers, chills, diaphoresis, headache, lightheadedness, dizziness, chest pain, palpitations, shortness of breath, cough or congestion, vomiting, or experiencing any changes in or difficulties with urinary or bowel function. She underwent full evaluation in the emergency department. CBC revealing leukocytosis with WBC count of 11.9. BMP unremarkable. Liver profile revealing elevated liver enzymes with AST of 129 and ALT of 238. Amylase and lipase normal findings. Urinalysis positive for infection. Urine culture sent to lab for analysis. Blood culture sent to lab for analysis. Abdominal ultrasound showing multiple small layering gallstones with moderate gallbladder distention and no reported gallbladder wall thickening or pericholecystic fluid. CT abdomen and pelvis without contrast showing modera te gallbladder distention with wall thickening and surrounding inflammation concerning for acute cholecystitis and a 1.1 cm lesion in the inferior hole of the right kidney with fat consistent with an angiomyolipoma. EKG complete showing sinus rhythm with frequent PVCs at 85 bpm upon personal review and interpretation. Patient was started on IV antibiotics with Unasyn and admitted under general surgery team. We were consulted for medical management throughout hospitalization. Patient underwent laparoscopic cholecystectomy on 11/13. Patient was seen and examined. No acute events overnight. She reports mild abdominal pain at the site on incision. MELQUIADES daining serosanguineous fluid. Passing gas. Urinating freely. Physical exam: Vital signs reviewed and stable. General: Nontoxic, no distress and appears stated age. Derm: Skin warm and dry, normal coloration for ethnicity. Head: Atraumatic, normocephalic and symmetric. Eyes: EOMs intact, no lid lag, and anicteric sclera Cardiovascular: regular rate and rhythm with normal S1S2, no murmur Lungs: Respirations even, regular, and unlabored on room air. Lungs CTA bilaterally, no rhonchi, no rales, no wheezing, and no accessory muscle usage. Abdominal: MELQUIADES drain with serosanguineous fluid Ext: ROM intact. No gross muscle atrophy, no edema, no contractures Neuro: Speech clear, face symmetrical Psych: Alert and oriented to person, place, time, and situation. Appropriate and pleasant affect. Assessment and Plan of Care: Data review: CBC shows hemoglobin of 11.8. Most recent BP 144/75, pulse of 67, respiratory rate of 18, temperature of 97.8 F saturating 97% on room air. Imaging reviewed: -No new imaging for review. Acute cholecystitis with elevated liver enzymes Acute cystitis without hematuria Sepsis, secondary to above. Elevated liver enzymes History of GERD Morbid obesity with BMI of 43.9 kg/m -Discussed with Gala SANON, plans for no antibiotics on discharge. -Gen. surgery took patient for laparoscopic cholecystectomy 11/13/22. -Patient is postoperative day 2 and appears to be doing well. Thank you for allowing us to participate in the care of this pleasant patient. Do not hesitate to contact us with questions. Someone can be reached from the [facility] hospitalist group all hours of the day at [phone] or via [employer]. Patient is medically stable for discharge. Objective - Vital Signs Vital signs: Vital Signs Temp 97.8 F 11/15/22 07:59 Pulse 68 11/15/22 08:00 Resp 18 11/15/22 08:00 BP 144/75 11/15/22 07:59 Pulse Ox 96 11/15/22 10:01 FiO2 Intake & Output 11/14/22 11/15/22 11/15/22 18:59 06:59 18:59 Intake Total 520 Output Total 30 70 Balance 490 -70 Intake: Oral 520 Output: Drainage 30 70 Right Abdomen 30 70 Other: Voiding Method Toilet # Voids 2 2 - Labs CBC & Chem 7: 11/15/22 05:51 11/14/22 06:56 Labs: Abnormal Lab Results - Last 24 Hours (Table) 11/15/22 Range/Units 05:51 Hgb 11.8 L (12.0-15.0) d/dL MCHC 31.3 L (32.0-37.0) d/dL Microbiology - Last 24 Hours (Table) 11/12/22 02:15 Blood Culture - Preliminary Blood 11/12/22 02:30 Blood Culture - Preliminary Blood 11/11/22 22:47 Urine Culture - Final Urine,Voided Escherichia coli
[2022-11-15 16:48] LABS: ALT 74 U/L (8-44); AST 32 U/L (13-35); Albumin 3.7 d/dL (3.8-4.9); Albumin/Globulin Ratio 1.76 Ratio (1.60-3.17); Alkaline Phosphatase 79 U/L (41-126); BUN/Creat Ratio 10.33 Ratio (12.00-20.00); Blood Urea Nitrogen 6.2 mg/dL (9.0-27.0); Calcium 8.9 mg/dL (8.7-10.3); Carbon Dioxide 20.3 mmol/L (21.6-31.8); Chloride 108 mmol/L (96-109); Globulin 2.1 d/dL (1.6-3.3); Glucose 82 mg/dL (70-110); Sodium 142 mmol/L (135-145); Total Bilirubin 0.2 mg/dL (0.3-1.2); Total Protein 5.8 d/dL (6.2-8.2)
[2022-11-15] MEDS ORDERED: HEPARIN SODIUM,PORCINE 5,000 UNIT/ML 1 ML VIAL SQ SCH (21:00)
== END 2022-11-15 13:47 | disposition home or self-care (01) ==
LOC: EC 21:43 → 4SSUR 11-12 05:22
PROVIDERS: ADMIT Surgery; ATTEND Surgery
DX: K80.00 Calculus of gallbladder with acute cholecystitis without obstruction (principal); N30.00 Acute cystitis without hematuria; R74.8 Abnormal levels of other serum enzymes; R00.0 Tachycardia, unspecified; K21.9 Gastro-esophageal reflux disease without esophagitis; K58.9 Irritable bowel syndrome, unspecified; H91.93 Unspecified hearing loss, bilateral; G47.30 Sleep apnea, unspecified; E66.01 Morbid (severe) obesity due to excess calories; Z68.41 Body mass index [BMI] 40.0-44.9, adult; N28.9 Disorder of kidney and ureter, unspecified; I49.3 Ventricular premature depolarization; D72.829 Elevated white blood cell count, unspecified; Z87.891 Personal history of nicotine dependence; K44.9 Diaphragmatic hernia without obstruction or gangrene; Z98.84 Bariatric surgery status; Z86.14 Personal history of Methicillin resistant Staphylococcus aureus infection; Z83.1 Family history of other infectious and parasitic diseases; Z96.653 Presence of artificial knee joint, bilateral; Z98.890 Other specified postprocedural states; Z82.5 Family history of asthma and other chronic lower respiratory diseases; Z80.0 Family history of malignant neoplasm of digestive organs; Z79.899 Other long term (current) drug therapy
CPT/HCPCS: 96376; 96365; 96367; 96375; 99285; 36415; 94760; 93005; 88304; 80053 ×4; 82150; 83605; 83690; 85025 ×2; 85027 ×2; 85610; 81001; 87040; 87086; 87077; 87186; 76705; 74176; 47562; G0378 ×4; J2250; J0330; J2270 ×3; J1644 ×3; J1100; J2710; J2405; J0690; J0696; J3010; J1170; J0295 ×4; J1885; J2704; J2001; J0665

== ENCOUNTER 2022-11-18 16:28 | Emergency (ER) | payer OTHER ==
[2022-11-18] MEDS ORDERED: FAMOTIDINE 20 MG TAB PO STA (17:20)
[2022-11-18] MEDS ORDERED: diphenhydrAMINE 50 MG CAP PO STA (17:20)
[2022-11-18] MEDS ORDERED: methylPREDNISolone SOD SUCCI 125 MG/2 ML VIAL IM ONE (17:34)
--- NOTE | 2022-11-18 18:07 | ED ---
General Adult HPI - General Chief complaint: Allergic Reaction Stated complaint: Allergic reaction Time Seen by Provider: 11/18/22 16:36 Source: patient, RN notes reviewed Mode of arrival: ambulatory Limitations: no limitations - History of Present Illness Initial comments: 61-year-old female presents to the emergency department chief complaint of rash. Patient states that she had a cholecystectomy on Saturday. She reports the rash started last night around 6 PM. She reports it started on bilateral flanks and spread up her back and chest. She also reports that on bilateral forearms. She denies any changes in her breathing, fever, chills, nausea, vomiting. - Related Data Home Medications Medication Instructions Recorded Confirmed Multivitamins, Thera [Multivitamin 1 tab PO BID 11/09/15 11/12/22 (formulary)] Cholecalciferol [Vitamin D3 (25 25 mcg PO DAILY 09/12/22 11/12/22 Mcg = 1000 Iu)] L.acidoph,Paracasei, B.lactis 1 cap PO HS 09/12/22 11/12/22 [Probiotic] Markesan-3/Dha/Epa/Fish Oil [Fish Oil 1 cap PO BID 09/12/22 11/12/22 1,000 mg Softgel] Ubidecarenone [Co Q-10] 300 mg PO DAILY 09/12/22 11/12/22 Cellwise 1 tab PO BID 11/12/22 11/12/22 Cyanocobalamin (Vitamin B-12) 1,000 mcg PO DAILY 11/12/22 11/12/22 [Vitamin B-12] Provexcv 1 tab PO BID 11/12/22 11/12/22 Recover A1 1 tab PO BID 11/12/22 11/12/22 Previous Rx's Medication Instructions Recorded Docusate [Colace] 100 mg PO BID #30 capsule 11/15/22 HYDROcodone/APAP 5-325MG [[place] 1 tab PO Q6HR PRN 3 Days #12 tab 11/15/22 5-325] Famotidine 20 mg PO BID #14 tablet 11/18/22 diphenhydrAMINE [Benadryl] 50 mg PO QID PRN #20 capsule 11/18/22 Allergies Allergy/AdvReac Type Severity Reaction Status Date / Time No Known Allergies Allergy Verified 11/13/22 12:58 Review of Systems ROS Statement: Those systems with pertinent positive or pertinent negative responses have been documented in the HPI. ROS Other: All systems not noted in ROS Statement are negative. Past Medical History Past Medical History: GERD/Reflux Additional Past Medical History / Comment(s): HIATAL HERNIA; IBS, bilateral hearing loss from , sleep apnea, GERD improved since surgery in August 2014 of Hiatal hernia and gastric sleeve History of Any Multi-Drug Resistant Organisms: ESBL, MRSA Date of last positivie culture/infection: 11/05/19 MRSA 2012 MDRO Source:: LT EAR ESBL Past Surgical History: Bariatric Surgery, Cholecystectomy, Orthopedic Surgery, Tubal Ligation Additional Past Surgical History / Comment(s): Bariatric sleeve in August 2014, bilateral knee total replacement (right knee February 2015, Left knee May 2015), left breast biopsy (negative in 2014) Past Anesthesia/Blood Transfusion Reactions: No Reported Reaction Past Psychological History: No Psychological Hx Reported Smoking Status: Former smoker Past Alcohol Use History: None Reported Past Drug Use History: None Reported - Past Family History Mother Family Medical History: Asthma, Cancer, COPD Additional Family Medical History / Comment(s): colon cancer 2015, Father History Unknown: Yes General Exam Limitations: no limitations General appearance: alert, in no apparent distress Head exam: Present: atraumatic, normocephalic, normal inspection Eye exam: Present: normal appearance, PERRL, EOMI. Absent: scleral icterus, conjunctival injection, periorbital swelling ENT exam: Present: normal exam, mucous membranes moist Neck exam: Present: normal inspection. Absent: tenderness, meningismus, lymphadenopathy Respiratory exam: Present: normal lung sounds bilaterally. Absent: respiratory distress, wheezes, rales, rhonchi, stridor Cardiovascular Exam: Present: regular rate, normal rhythm, normal heart sounds. Absent: systolic murmur, diastolic murmur, rubs, gallop, clicks GI/Abdominal exam: Present: soft, normal bowel sounds. Absent: distended, tenderness, guarding, rebound, rigid Extremities exam: Present: normal inspection, full ROM, normal capillary refill. Absent: tenderness, pedal edema, joint swelling, calf tenderness Back exam: Present: normal inspection Neurological exam: Present: alert, oriented X3 Psychiatric exam: Present: normal affect, normal mood Skin exam: Present: warm, dry, rash (Rash on patient's back and chest, bilateral arms), other (Excoriations from scratching) Course Vital Signs 11/18/22 11/18/22 16:29 18:26 Temperature 98.4 F 98.7 F Pulse Rate 83 68 Respiratory 16 18 Rate Blood Pressure 182/79 123/56 O2 Sat by Pulse 97 98 Oximetry Medical Decision Making - Medical Decision Making Was pt. sent in by a medical professional or institution (, [facility], WORK OVER RIG OPERATOR, urgent care, hospital, or skilled nursing...) When possible be specific @ -No Did you speak to anyone other than the patient for history (EMS, parent, family, police, friend...)? What history was obtained from this source @ -No Did you review nursing and triage notes (agree or disagree)? Why? @ -I reviewed and agree with nursing and triage notes Were old charts reviewed (outside hosp., previous admission, EMS record, old EKG, old radiological studies, urgent care reports/EKG's, skilled nursing records)? Report findings @ -No old charts were reviewed Differential Diagnosis (chest pain, altered mental status, abdominal pain women, abdominal pain men, vaginal bleeding, weakness, fever, dyspnea, syncope, headache, dizziness, GI bleed, back pain, seizure, CVA, palpatations, mental health, musculoskeletal)? @ -ALLERGIC reaction, atopic dermatitis, contact dermatitis, this list is not all-inclusive EKG interpreted by me (3pts min.). @ -None X-rays interpreted by me (1pt min.). @ -None done CT interpreted by me (1pt min.). @ -None done U/S interpreted by me (1pt. min.). @ -None done What testing was considered but not performed or refused? (CT, X-rays, U/S, labs)? Why? @ -None What meds were considered but not given or refused? Why? @ -None Did you discuss the management of the patient with other professionals (professionals i.e. , [facility], WORK OVER RIG OPERATOR, lab, RT, psych nurse, social media coordinator, dental surgery doctor, teacher, licensed mortgage loan officer, casework manager)? Give summary @ -No Was smoking cessation discussed for >3mins.? @ -No Was critical care preformed (if so, how long)? @ -No Were there social determinants of health that impacted care today? How? (Homelessness, low income, unemployed, alcoholism, drug addiction, transportation, low edu. Level, literacy, decrease access to med. care, skilled nursing, rehab)? @ -No Was there de-escalation of care discussed even if they declined (Discuss DNR or withdrawal of care, Hospice)? DNR status @ -No What co-morbidities impacted this encounter? (DM, HTN, Smoking, COPD, CAD, Cancer, CVA, ARF, Chemo, Hep., AIDS, mental health diagnosis, sleep apnea, morbid obesity)? @ -None Was patient admitted / discharged? Hospital course, mention meds given and route, prescriptions, significant lab abnormalities, going to OR and other pertinent info. @ -Discharged. Patient presented to emergency department chief complaint of rash. Patient isn't a medical Society has been on new medications. She believes that this may be the cause of her rash. She admits to taking Benadryl. Patient was given a dose of Solu-Medrol, Pepcid, Benadryl. Pepcid and Benadryl were sent to the patient's pharmacy. Patient stable at time of discharge. She'll follow up with her primary care provider and surgeon as scheduled. Case discussed with my attending, Dr. Fairchild Undiagnosed new problem with uncertain prognosis? @ -No Drug Therapy requiring intensive monitoring for toxicity (Heparin, Nitro, Insulin, Cardizem)? @ -No Were any procedures done? @ -No Diagnosis/symptom? @ -ALLERGIC reaction Acute, or Chronic, or Acute on Chronic? @ -Acute Uncomplicated (without systemic symptoms) or Complicated (systemic symptoms)? @ -Uncomplicated Side effects of treatment? @ -No Exacerbation, Progression, or Severe Exacerbation? @ -No Poses a threat to life or bodily function? How? (Chest pain, [place], [place], pneumonia, PE, COPD, DKA, ARF, appy, cholecystitis, CVA, Diverticulitis, Homicidal, Suicidal, threat to staff... and all critical care pts) @ -No Disposition Clinical Impression: Allergic reaction Disposition: HOME SELF-CARE Condition: Stable Instructions (If sedation given, give patient instructions): General Allergic Reaction (ED) Additional Instructions: Please take Benadryl and Pepcid for allergy like symptoms. Follow-up with your surgeon as scheduled. Return to the emergency department for new or worsening symptoms. Prescriptions: diphenhydrAMINE [Benadryl] 50 mg PO QID PRN #20 capsule PRN Reason: Itching Famotidine 20 mg PO BID #14 tablet Is patient prescribed a controlled substance at d/c from ED?: No Referrals: Haroon Horne DO [Primary Care Provider] - 1-2 days Time of Disposition: 18:15
[2022-11-18 18:32] VITALS: BP 123/56; PULSE 68; RESP 18; TEMP 98.7
== END 2022-11-18 18:26 | disposition home or self-care (01) ==
LOC: EC 16:28
DX: T78.40XA Allergy, unspecified, initial encounter (principal); Z87.891 Personal history of nicotine dependence
CPT/HCPCS: 99283; 96372; J2930

== ENCOUNTER 2022-11-23 11:00 | Emergency (ER) | payer OTHER ==
[2022-11-23 11:26] VITALS: TEMP 98.2
--- NOTE | 2022-11-23 13:09 | ED ---
General Adult HPI - General Chief complaint: Recheck/Abnormal Lab/Rx Stated complaint: post op comp Time Seen by Provider: 11/23/22 12:16 Source: patient, RN notes reviewed Mode of arrival: ambulatory Limitations: no limitations - History of Present Illness Initial comments: 61-year-old female past medical history significant for cholecystecto my presents to the emergency department with postop problem. Patient reports that she had a cholecystectomy performed by Dr. chou sometime last week. She reports that she is due to have her drain removed however her primary care did not comfortable doing this. She does report some mild erythema around the site however denies any fever, chills, tenderness, purulent discharge. She denies any purulent or bloody discharge wound strain. - Related Data Home Medications Medication Instructions Recorded Confirmed No Known Home Medications 11/23/22 11/23/22 Allergies Allergy/AdvReac Type Severity Reaction Status Date / Time No Known Allergies Allergy Verified 11/23/22 13:27 Review of Systems ROS Statement: Those systems with pertinent positive or pertinent negative responses have been documented in the HPI. ROS Other: All systems not noted in ROS Statement are negative. Past Medical History Past Medical History: GERD/Reflux Additional Past Medical History / Comment(s): HIATAL HERNIA; IBS, bilateral hearing loss from , sleep apnea, GERD improved since surgery in August 2014 of Hiatal hernia and gastric sleeve History of Any Multi-Drug Resistant Organisms: ESBL, MRSA Date of last positivie culture/infection: 11/05/19 MRSA 2013 MDRO Source:: LT EAR ESBL Past Surgical History: Bariatric Surgery, Cholecystectomy, Orthopedic Surgery, Tubal Ligation Additional Past Surgical History / Comment(s): Bariatric sleeve in August 2014, bilateral knee total replacement (right knee February 2015, Left knee May 2015), left breast biopsy (negative in 2014) Past Anesthesia/Blood Transfusion Reactions: No Reported Reaction Past Psychological History: No Psychological Hx Reported Smoking Status: Former smoker Past Alcohol Use History: None Reported Past Drug Use History: None Reported - Past Family History Mother Family Medical History: Asthma, Cancer, COPD Additional Family Medical History / Comment(s): colon cancer 2015, Father History Unknown: Yes General Exam - General Exam Comments Initial Comments: General: Alert, in no acute distress Head: atraumatic normocephalic. Eyes PERRL, EOMI intact, mucous membranes moist Respiratory: Lungs clear to auscultation bilaterally Cardiovascular: Heart rate regular rate and rhythm Abdominal: Soft without guarding or rebound, surgical site does not appear acutely infected. Cholecystostomy with clear serous drainage. Extremities: Normal inspection with full range of motion and normal capillary refill Neuroogic: alert and oriented 3, CN II-XII intact, able to ambulate with steady gait Skin: warm dry and intact with normal color Limitations: no limitations Course Vital Signs 11/23/22 11/23/22 11:24 14:16 Temperature 98.2 F Pulse Rate 97 64 Respiratory 20 18 Rate Blood Pressure 159/77 136/86 O2 Sat by Pulse 97 97 Oximetry - Reevaluation(s) Reevaluation #1: 11/23/22 13:[address] Chou who recommends taking out the drain and putting a dry dressing on it. He will Follow-up with her in his office. Medical Decision Making - Medical Decision Making Was pt. sent in by a medical professional or institution (, PA, APPLICATION SOFTWARE DEVELOPER, urgent care, hospital, or fpc...) When possible be specific @ -[No] Did you speak to anyone other than the patient for history (EMS, parent, family, police, friend...)? What history was obtained from this source @ -[No] Did you review nursing and triage notes (agree or disagree)? Why? @ -[I reviewed and agree with nursing and triage notes] Were old charts reviewed (outside hosp., previous admission, EMS record, old EKG, old radiological studies, urgent care reports/EKG's, fpc records)? Report findings @ -[No old charts were reviewed] Differential Diagnosis (chest pain, altered mental status, abdominal pain women, abdominal pain men, vaginal bleeding, weakness, fever, dyspnea, syncope, headache, dizziness, GI bleed, back pain, seizure, CVA, palpatations, mental health, musculoskeletal)? @ -[not applicable] EKG interpreted by me (3pts min.). @ -[As above] X-rays interpreted by me (1pt min.). @ -[None done] CT interpreted by me (1pt min.). @ -[None done] U/S interpreted by me (1pt. min.). @ -[None done] What testing was considered but not performed or refused? (CT, X-rays, U/S, labs)? Why? @ -[None] What meds were considered but not given or refused? Why? @ -[None] Did you discuss the management of the patient with other professionals (professionals i.e. , PA, APPLICATION SOFTWARE DEVELOPER, lab, RT, psych nurse, vp digital marketing social media and crm, control and recovery combat rescue, teacher, safety and security officer, welfare case worker)? Give summary @ -[place] discussed with Dr. chou, request the drain to be removed. A dry dressing applied. He will follow up with the patient in his office on . Was smoking cessation discussed for >3mins.? @ -[No] Was critical care preformed (if so, how long)? @ -[No] Were there social determinants of health that impacted care today? How? (Homelessness, low income, unemployed, alcoholism, drug addiction, transportation, low edu. Level, literacy, decrease access to med. care, penitentiary, rehab)? @ -[No] Was there de-escalation of care discussed even if they declined (Discuss DNR or withdrawal of care, Hospice)? DNR status @ -[No] What co-morbidities impacted this encounter? (DM, HTN, Smoking, COPD, CAD, Cancer, CVA, ARF, Chemo, Hep., AIDS, mental health diagnosis, sleep apnea, morbid obesity)? @ -[None] Was patient admitted / discharged? Hospital course, mention meds given and route, prescriptions, significant lab abnormalities, going to OR and other pertinent info. @ Discharged. This is a pleasant 61-year-old female who is status post cholecystectomy presents to the emergency department for postop problem. Patient had a thorough history and physical exam performed while in the emergency department. Colace cystostomy draining with serous discharge. Site with small amount of erythema or purulent discharge. It does not appear acutely infected. Case discussed with Dr. chou request removal of the drain and close follow-up with his office on 11/29/2022. Strict return precautions were discussed at length the patient verbalized understanding clubbing worsening redness, purulent discharge, fevers developing. Patient be discharged home in stable condition. Case discussed with Dr. Mcarthur, who agrees with plan of care. Undiagnosed new problem with uncertain prognosis? @ -[No] Drug Therapy requiring intensive monitoring for toxicity (Heparin, Nitro, Insulin, Cardizem)? @ -[No] Were any procedures done? @ -[No] Diagnosis/symptom? @ -Post-op problem Acute, or Chronic, or Acute on Chronic? @ -Acute Uncomplicated (without systemic symptoms) or Complicated (systemic symptoms)? @ -Uncomplicated Side effects of treatment? @ -[No] Exacerbation, Progression, or Severe Exacerbation? @ -[No] Poses a threat to life or bodily function? How? (Chest pain, [place], [place], pneumonia, PE, COPD, DKA, ARF, appy, cholecystitis, CVA, Diverticulitis, Homicidal, Suicidal, threat to staff... and all critical care pts) @ -low likelihood Disposition Clinical Impression: Encounter for wound re-check, Cholecystostomy care Disposition: HOME SELF-CARE Condition: Stable Additional Instructions: Please watch your symptoms closely. Patient return to the nearest emergency d epartment if fever, chills, purulent discharge from the site develop. Is patient prescribed a controlled substance at d/c from ED?: No Referrals: Haroon Horne DO [Primary Care Provider] - 1-2 days Eliezer Goldstein MD [Medical Doctor] - 1-2 days Time of Disposition: 13:09
[2022-11-23 14:17] VITALS: BP 136/86; PULSE 64; RESP 18
== END 2022-11-23 14:17 | disposition home or self-care (01) ==
LOC: EC 11:00
DX: Z48.00 Encounter for change or removal of nonsurgical wound dressing (principal); Z93.59 Other cystostomy status; Z87.891 Personal history of nicotine dependence
CPT/HCPCS: 99283

== ENCOUNTER → 2024-01-21 | Outpatient (CLI) | payer OTHER ==
--- NOTE | 2024-01-22 06:13 | MR ---
EXAMINATION TYPE: MR lumbar spine wo con DATE OF EXAM: 01/21/2024 COMPARISON: Lumbar spine radiograph 01/07/2024, CT abdomen and pelvis 11/12/2022 HISTORY: Low back pain into buttocks, trouble walking, feet not lifting when walking TECHNIQUE: Multiplanar, multisequence images of the lumbar spine were acquired without IV contrast. FINDINGS: The lumbar vertebral bodies do have preserved heights and alignment. Few T1/T2 hyperintens e lesions within the spine with largest in the T12 vertebral body consistent with benign vertebral he mangiomas. No significant disc height loss or disc desiccation. The conus medullaris and the distal s franchesca cord do appear unremarkable with regards to their signal intensity and morphology. L1-L2: No significant disc pathology is identified. The spinal canal and neural foramen are patent. L2-L3: No significant disc pathology is identified. The spinal canal and neural foramen are patent. L3-L4: No significant disc pathology is identified. The spinal canal and neural foramen are patent. L4-L5: No significant disc pathology is identified. The spinal canal and neural foramen are patent L5-S1: The intervertebral disc appears round on its contour posteriorly without significant mass eff ect upon the thecal sac. Facet joints are enlarged. Neural canals do remain patent. Other findings: Right renal T2 hyperintense partially visualized cyst measuring at least 2.0 cm. Righ t renal 1.2 cm lesion with heterogenous T1 and T2 signal which is consistent with an angiomyolipoma w hen compared with CT.. IMPRESSION: 1. No definitive evidence for disc herniation or significant spinal canal stenosis. 2. No significant degenerative disc disease. [facility], , 01/22/2024 6:10 AM
== END | disposition home or self-care (01) ==
LOC: RADMRIMAIN 18:56
PROVIDERS: ATTEND Orthopaedic Surgery
DX: M47.816 Spondylosis without myelopathy or radiculopathy, lumbar region (principal)
CPT/HCPCS: 72148

== ENCOUNTER → 2024-05-15 | Outpatient (CLI) | payer OTHER ==
[2024-05-15 15:02] LABS: Basophils # (A) 0.03 X 10*3/uL (0.00-0.10); Basophils % (A) 0.5 %; Eosinophils # (A) 0.18 X 10*3/uL (0.04-0.35); Eosinophils % (A) 2.7 %; HCT 39.3 % (37.2-46.3); HGB 13.1 g/dL (12.0-15.0); Lymphocytes # (A) 1.75 X 10*3/uL (0.90-5.00); Lymphocytes % (A) 26.4 %; MCH 29.1 pg (27.0-32.0); MCHC 33.3 g/dL (32.0-37.0); MCV 87.3 FL (80.0-97.0); Mean Platelet Volume 9.9 FL (9.5-12.2); Monocytes # (A) 0.45 X 10*3/uL (0.20-1.00); Monocytes % (A) 6.8 %; NRBC Per 100 WBC 0 X 10*3/uL (0.00-0.01); Neutrophils % (A) 63.3 %; Platelet Count 236 X 10*3/uL (140-440); RDW 13.6 % (11.5-14.5); WBC 6.63 X 10*3/uL (4.50-10.00)
[2024-05-15 15:14] LABS: ALT 14 U/L (8-44); AST 20 U/L (13-35); Albumin 4.2 g/dL (3.8-4.9); Albumin/Globulin Ratio 1.91 Ratio (1.60-3.17); Alkaline Phosphatase 91 U/L (41-126); BUN/Creat Ratio 20.33 Ratio (12.00-20.00); Blood Urea Nitrogen 12.2 mg/dL (9.0-27.0); Calcium 9.2 mg/dL (8.7-10.3); Carbon Dioxide 25.4 mmol/L (21.6-31.8); Chloride 109 mmol/L (96-109); Globulin 2.2 g/dL (1.6-3.3); Glucose 88 mg/dL (70-110); Phosphorus 3.7 mg/dL (2.4-5.1); Sodium 144 mmol/L (135-145); Total Bilirubin 0.5 mg/dL (0.3-1.2); Total Protein 6.4 g/dL (6.2-8.2)
[2024-05-15 19:37] LABS: Appearance,Urine Turbid (Clear); Bilirubin,Urine Negative (Negative); Blood,Urine Small (Negative); Color,Urine Dark Yellow (Yellow); Ketones,Urine Trace (Negative); Nitrite,Urine Positive (Negative); Specific Gravity,Urine 1.027 (1.001-1.030)
[2024-05-15 20:34] LABS: Bacteria,Urine 3+ (None Seen); Calcium Oxalate Crystals,Urine Present (None Seen)
== END | disposition home or self-care (01) ==
LOC: LABWHC1 10:49
PROVIDERS: ATTEND Internal Medicine
DX: D17.9 Benign lipomatous neoplasm, unspecified (principal)
CPT/HCPCS: 36415; 80053; 81001; 82043; 82570; 83735; 84100; 85025

== ENCOUNTER → 2024-07-24 | Outpatient (CLI) | payer OTHER ==
--- NOTE | 2024-07-24 14:19 | US ---
EXAMINATION TYPE: US kidneys/renal and bladder DATE OF EXAM: 07/24/2024 COMPARISON: NONE CLINICAL INDICATION: Female, 63 years old with history of D17.9 BENIGN LIPOMATOUS NEOPLASM, UNSPECIFI ED; Lipomatous TECHNIQUE: Grayscale imaging of the bilateral kidneys and urinary bladder: FINDINGS: EXAM MEASUREMENTS: Right Kidney: 11.1 x 5.4 x 5.8 cm Left Kidney: 11.6 x 6.3 x 5.4 cm Right Kidney: Anechoic area compatible with cortical renal cyst mid pole 2.5 x 2.3 x 2.2 cm. Left Kidney: Dromedary hump seen. Bladder: anechoic Bilateral Jets seen: yes. IMPRESSION: 1. Simple appearing right mid renal cortical cyst [facility], , 07/24/2024 2:17 PM
== END | disposition home or self-care (01) ==
LOC: RADUSWWP 13:19
PROVIDERS: ATTEND Internal Medicine
DX: D17.9 Benign lipomatous neoplasm, unspecified (principal); N28.1 Cyst of kidney, acquired
CPT/HCPCS: 76770